=== PATIENT | female | born 1985 | race Caucasian/White ===

== ENCOUNTER 2016-03-08 14:26 | Emergency (ER) | payer OTHER ==
[~2016-03-08 14:26] MED LIST: /MOM400 PO; ACET500T PO; ACET50TA PO; ANUS2.5C2 EXT; BENA25TA4 PO; CIPR500T3 PO; DOCU10ELUD PO; GUAI1TAB PO; IBUP600T26 PO; IBUP800T23 PO; PRENTAB66 PO; VALACYCLOVIR; VALTREX PO; ZANTTAB PO
[2016-03-08] MEDS ORDERED: MORPHINE 4 MG/ML 1ML SYRINGE As Ordered ONE (16:38)
[2016-03-08] MEDS ORDERED: ONDANSETRON 4MG/2ML VIAL (J2405) As Ordered ONE (16:38)
[2016-03-08 17:16] LABS: BASO % 0.6 % (0.0-1.0); EOS % 0.5 % (0.0-3.0); LARGE UNSTAINED CELL # 0.1 K/mm3 (0.0-0.4); LARGE UNSTAINED CELL % 1.8 % (0.0-4.0); LYMPH # 2.3 K/mm3 (1.5-4.5); LYMPH % 37.7 % (24.0-44.0); MEAN CORPUSCULAR HEMOGLOBIN 31.2 pg (27.0-33.0); MEAN CORPUSCULAR HGB CONC 34.3 g/dl (32.0-36.5); MEAN CORPUSCULAR VOLUME 91.1 fl (80.0-96.0); MONO # 0.3 K/mm3 (0.0-0.8); NEUTROPHILS # 3.3 K/mm3 (1.8-7.7); NEUTROPHILS % 54.4 % (36.0-66.0); PLATELET COUNT, AUTOMATED 229 k/mm3 (150-450); RED CELL DISTRIBUTION WIDTH 12.4 % (11.5-14.5)
[2016-03-08 17:32] LABS: ALBUMIN 3.5 GM/DL (3.2-5.2); ALBUMIN/GLOBULIN RATIO 0.92 (1.00-1.93); ALKALINE PHOSPHATASE 75 U/L (45-117); ALT/SGPT 16 U/L (12-78); AMYLASE 33 U/L (25-115); ANION GAP 8 MEQ/L (8-16); AST/SGOT 8 U/L (15-37); BILIRUBIN,DIRECT < 0.1 MG/DL (0.0-0.2); BILIRUBIN,TOTAL 0.3 MG/DL (0.2-1.0); BLOOD UREA NITROGEN 17 MG/DL (7-18); CALCIUM LEVEL 9.1 MG/DL (8.5-10.1); CARBON DIOXIDE LEVEL 27 MEQ/L (21-32); CHLORIDE LEVEL 109 MEQ/L (98-107); CREATININE FOR GFR 0.79 MG/DL (0.55-1.02); GLOMERULAR FILTRATION RATE > 60.0 (>60); GLUCOSE, FASTING 84 MG/DL (70-105); POTASSIUM SERUM 3.8 MEQ/L (3.5-5.1); SODIUM LEVEL 144 MEQ/L (136-145); TOTAL PROTEIN 7.3 GM/DL (6.4-8.2)
--- NOTE | 2016-03-08 17:53 | REP ---
Clinical: Flank pain and hematuria. Comparison: 11/24/2014. Findings: Right kidney demonstrates approximately four punctate renal calculi up to 2 mm. Left kidney demonstrates approximately six renal calculi measuring up to 7 mm. The kidneys are otherwise normal in appearance without perinephric stranding and without obstructing ureteral calculi. Bladder is unremarkable. Liver, spleen, gallbladder, and bilateral adrenal glands are normal. The enteric system is without obstruction or acute inflammatory process. Pelvis demonstrates normal bladder and age-appropriate uterus/adnexa. No pelvic fluid or ascites. No adenopathy. No free air. Lung bases clear. Skeletal structures normal. Impression: Bilateral nonobstructing nephroliths up to 2 mm in the right kidney and 7 mm in the left kidney. No associated hydronephrosis or obstructing calculi. Signed by Odilon Bear MD 03/08/2016 05:45 P
[2016-03-08] MEDS ORDERED: CIPROFLOXACIN 500 MG TAB As Ordered ONE (18:35)
--- NOTE | 2016-03-08 19:25 | EDDOCDS ---
Nurse's Notes [facility] Name: Gemini Buchanan Age: 30 yrs Sex: Female : 1985 Arrival Date: 03/08/2016 Time: 14:26 Bed I3 / M3 Private MD: Manuel Whitley P. Diagnosis: Urinary tract infection, site not specified;Calculus of kidney-BILATERAL Presentation: 03/08 14:36 Presenting complaint: Patient states: mid to lower abd pain that radiates to left srm flank. pain started 2 nights ago. nausea and cramping. hx of kidney stones but this feel different. yesterday had blood on tissue when wiped. Risk factors: the patient reports no vaginal bleeding. Adult Sepsis Screening: The patient does not have new or worsening altered mentation. Patient's respiratory rate is less than 22. Systolic blood pressure is greater than 100. Patient has a qSOFA score of 0- Negative Sepsis Screen. Suicide/Homicide risk assessment- the patient denies having any suicidal and/or homicidal ideations and does not present with any other emotional, behavioral or mental health complaints. Status: The patient is a dependent. Transition of care: patient was not received from another setting of care. 14:36 Acuity: STACI Level 3 [facility] 14:36 Method Of Arrival: Walkin/Carried/Asstd [facility] Triage Assessment: 14:38 General: Appears in no apparent distress, Behavior is appropriate for age, cooperative. srm Pain: Pain currently is 8 out of 10 on a pain scale. HIV screening NA for this visit Offered previously. GI: Reports mid to lower abd pain. 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 control daily - PMHx: Kidney stones; - PSHx: Tonsillectomy; Lithotripsy; kidney stent; - Social history: Smoking status: Patient states was never smoker of tobacco. No barriers to communication noted, The patient speaks fluent Bhutanese, Speaks appropriately for age. - Family history: Not pertinent. - : The pt / caregiver states he / she is not on anticoagulants. Home medication list is obtained from the patient. - Exposure Risk Screening:: None identified. Screenin:08 Screening information is obtained from the patient. Fall risk: No risks identified. kc3 Assistance ADL's: requires no assistance with activities of daily living. Abuse/DV Screen: The patient / caregiver reports he/she is: not in a situation that causes fear, pain or injury. Nutritional screening: No deficits noted. home support is adequate. 19:23 Advance Directives: There is no active DNR order. [facility] Assessment: 17:05 General: Appears in no apparent distress, comfortable, Behavior is appropriate for age, kc3 cooperative. Neurological: Level of Consciousness is awake, alert, obeys commands, Oriented to person, place, time. Respiratory: Respiratory effort is even, unlabored, Respiratory pattern is regular, symmetrical. GI: Abdomen is flat, Bowel sounds present X 4 quads. Abd is soft Abd is tender to palpation in left lower quadrant. GI: Reports nausea. Derm: Skin is pink, warm & dry. 18:06 General: Appears in no apparent distress, comfortable, Behavior is appropriate for age, kc3 cooperative. Pain: Location: left lower quadrant Pain currently is 3 out of 10 on a pain scale. Neurological: Level of Consciousness is awake, alert, obeys commands, Oriented to person, place, time. Respiratory: Respiratory effort is even, unlabored. GI: Derm: Skin is normal. Vital Signs: 14:27 BP 143 / 79; Pulse 87; Resp 18; Temp 97.3(O); Pulse Ox 100% on R/A; Weight 61.69 kg ct3 (R); Height 5 ft. 0 in. (152.40 cm) (R); Pain 3/10; 17:27 BP 122 / 68; Pulse 79; Resp 18; Temp 97.3(O); Pulse Ox 100% on R/A; Pain 3/10; nb2 19:22 BP 138 / 97; Pulse 90; Resp 18; Temp 96.7(O); Pulse Ox 100% on R/A; Pain 3/10; mcp 14:27 Body Mass Index 26.56 (61.69 kg, 152.40 cm) ct3 Vitals: 14:27 Log In Time: March 08, 2016 at 14:25. ct3 ED Course: 14:27 Patient visited by Janeen Rhodes PCA. ct3 14:27 Patient moved to Waiting ct3 14:28 Patient moved to Pre RCE ct3 14:29 Manuel Whitley is Private Physician. ct3 14:38 Triage Initiated srm 14:46 Urine Culture Sent. srm 14:46 UA Sent. srm 14:50 Patient visited by Gwendolyn Llanes PCA. jb5 15:28 Patient moved to Triage 2 dy 15:29 Patient moved to Pre RCE dy 15:46 Patient moved to Triage 1 jf3 15:47 Patient visited by Gwendolyn Llanes PCA. jb5 16:04 [facility] ck[facility] 16:04 Sarai Diego MD is Attending Physician. ck7 16:04 Patient visited by Manuel Vega RPA-C. ck7 16:13 [facility] Payment Agreement was scanned into [employer] and attached to record. zo 16:18 Patient moved to I3 / M3 jb5 16:35 Patient visited by Manuel Vega RPA-C. ck7 17:03 Amylase Sent. kc3 17:03 Basic Metabolic Profile Sent. kc3 17:03 CBC with Diff Sent. kc3 17:04 Lipase Sent. kc3 17:04 Liver Profile Sent. kc3 17:04 Inserted saline lock: 20 gauge in left antecubital area and blood collected. The kc3 patient tolerated the procedure well. 17:08 Patient visited by Manuel Vega RPA-C. ck7 17:09 The patient / caregiver is instructed regarding the plan of care and ED course. kc3 17:28 Patient visited by Jackie Dozier. nb2 18:09 Patient visited by Pita Talamantes RN. kc3 18:12 CT ABD & PELVIS: No Contrast Returned. EDMS 18:40 Patient visited by Manuel Vega RPA-C. ck7 19:09 Jose Angel Jung is Referral Physician. ck7 19:22 Discontinued lock intact, bleeding controlled, pressure dressing applied, No mcp redness/swelling at site. No procedures done that require assistance. Administered Medications: 17:04 Drug: morphine 4 mg [morphine 4 mg/mL intravenous cartridge (1 mL)] Route: IVP; Site: kc3 left antecubital; 17:04 Drug: Ondansetron 4 mg [ondansetron HCl 2 mg/mL intravenous solution (2 mL)] Route: kc3 IVP; Site: left antecubital; 17:04 Drug: NS 0.9% 1000 ml [sodium chloride 0.9 % intravenous solution] Route: IV; Rate: kc3 bolus; Site: left antecubital; 18:38 Drug: Ciprofloxacin 500 mg [ciprofloxacin 500 mg tablet (1 tabs)] Route: PO; kc3 Point of Care Testing: Urine : 14:50 hCG Reading: Negative; Control Reading: Positive; jb5 Ranges: Order Results: Lab Order: UA; SPEC'M 03/08/16 14:44 Test: APPEARANCE, URINE; Value: CLEAR; Range: CLEAR; Status: F Test: COLOR, URINE; Value: YELLOW; Range: YELLOW; Status: F Test: PH,URINE; Value: 5.0; Range: 5.0-9.0; Units: UNITS; Status: F Test: SPECIFIC GRAVITY URINE AUTO; Value: 1.018; Range: 1.002-1.035; Status: F Test: PROTEIN, URINE AUTO; Value: 1+; Range: NEGATIVE; Abnormal: Above high normal; Units: mg/dL; Status: F Test: GLUCOSE, URINE (UA) AUTO; Value: NEGATIVE; Range: NEGATIVE; Units: mg/dL; Status: F Test: KETONE, URINE AUTO; Value: NEGATIVE; Range: NEGATIVE; Units: mg/dL; Status: F Test: UROBILINOGEN, URINE AUTO; Value: 0.2; Range: 0.0-2.0; Units: mg/dL; Status: F Test: BILIRUBIN, URINE AUTO; Value: NEGATIVE; Range: NEGATIVE; Status: F Test: NITRITE, URINE AUTO; Value: NEGATIVE; Range: NEGATIVE; Status: F Test: LEUKOCYTE ESTERASE, URINE AUTO; Value: TRACE; Range: NEGATIVE; Abnormal: Above high normal; Status: F Test: BLOOD, URINE BLOOD; Value: 2+; Range: NEGATIVE; Abnormal: Above high normal; Status: F Test: WBC, URINE AUTO; Value: 25; Range: 0-3; Abnormal: Above high normal; Units: /HPF; Status: F Test: RBC, URINE AUTO; Value: 69; Range: 0-3; Abnormal: Above high normal; Units: /HPF; Status: F Test: BACTERIA, URINE AUTO; Value: NEGATIVE; Range: NEGATIVE; Status: F Test: SQUAMOUS EPITHELIAL CELL UR AU; Value: 2; Range: 0-6; Units: /HPF; Status: F Test: MUCUS, URINE; Value: SMALL; Range: NEGATIVE; Status: F Test: HYALINE CAST, URINE AUTO; Value: 0; Range: 0-1; Units: /LPF; Status: F Lab Order: Amylase; SPEC'M 03/08/16 16:45 Test: AMYLASE; Value: 33; Range: 25-115; Units: U/L; Status: F Lab Order: Basic Metabolic Profile; SPEC'M 03/08/16 16:45 Test: GLUCOSE, FASTING; Value: 84; Range: 70-105; Units: MG/DL; Status: F Test: BLOOD UREA NITROGEN; Value: 17; Range: 7-18; Units: MG/DL; Status: F Test: CREATININE FOR GFR; Value: 0.79; Range: 0.55-1.02; Units: MG/DL; Status: F Test: GLOMERULAR FILTRATION RATE; Value: > 60.0; Range: >60; Status: F Test: SODIUM LEVEL; Value: 144; Range: 136-145; Units: MEQ/L; Status: F Test: POTASSIUM SERUM; Value: 3.8; Range: 3.5-5.1; Units: MEQ/L; Status: F Test: CHLORIDE LEVEL; Value: 109; Range: 98-107; Abnormal: Above high normal; Units: MEQ/L; Status: F Test: CARBON DIOXIDE LEVEL; Value: 27; Range: 21-32; Units: MEQ/L; Status: F Test: ANION GAP; Value: 8; Range: 8-16; Units: MEQ/L; Status: F Test: CALCIUM LEVEL; Value: 9.1; Range: 8.5-10.1; Units: MG/DL; Status: F Test Note: ; Units are mL/min/1.73 m2 Chronic Kidney Disease Staging per NKF: Stage I & II GFR >=60 Normal to Mildly Decreased Stage III GFR 30-59 Moderately Decreased Stage IV GFR 15-29 Severely Decreased Stage V GFR <15 Very Little GFR Left ESRD GFR <15 on CAR RENTAL SALES ASSISTANT Lab Order: CBC with Diff; SPEC'M 03/08/16 16:45 Test: WHITE BLOOD COUNT; Value: 6.0; Range: 4.0-10.0; Units: K/mm3; Status: F Test: RED BLOOD COUNT; Value: 4.28; Range: 4.00-5.40; Units: M/mm3; Status: F Test: HEMOGLOBIN; Value: 13.4; Range: 12.0-16.0; Units: g/dl; Status: F Test: HEMATOCRIT; Value: 39.0; Range: 36.0-47.0; Units: %; Status: F Test: MEAN CORPUSCULAR VOLUME; Value: 91.1; Range: 80.0-96.0; Units: fl; Status: F Test: MEAN CORPUSCULAR HEMOGLOBIN; Value: 31.2; Range: 27.0-33.0; Units: pg; Status: F Test: MEAN CORPUSCULAR HGB CONC; Value: 34.3; Range: 32.0-36.5; Units: g/dl; Status: F Test: RED CELL DISTRIBUTION WIDTH; Value: 12.4; Range: 11.5-14.5; Units: %; Status: F Test: PLATELET COUNT, AUTOMATED; Value: 229; Range: 150-450; Units: k/mm3; Status: F Test: NEUTROPHILS %; Value: 54.4; Range: 36.0-66.0; Units: %; Status: F Test: LYMPH %; Value: 37.7; Range: 24.0-44.0; Units: %; Status: F Test: MONO %; Value: 5.0; Range: 0.0-5.0; Units: %; Status: F Test: EOS %; Value: 0.5; Range: 0.0-3.0; Units: %; Status: F Test: BASO %; Value: 0.6; Range: 0.0-1.0; Units: %; Status: F Test: LARGE UNSTAINED CELL %; Value: 1.8; Range: 0.0-4.0; Units: %; Status: F Test: NEUTROPHILS #; Value: 3.3; Range: 1.8-7.7; Units: K/mm3; Status: F Test: LYMPH #; Value: 2.3; Range: 1.5-4.5; Units: K/mm3; Status: F Test: MONO #; Value: 0.3; Range: 0.0-0.8; Units: K/mm3; Status: F Test: EOS #; Value: 0.0; Range: 0.0-0.50; Units: K/mm3; Status: F Test: BASO #; Value: 0.0; Range: 0.0-0.2; Units: K/mm3; Status: F Test: LARGE UNSTAINED CELL #; Value: 0.1; Range: 0.0-0.4; Units: K/mm3; Status: F Lab Order: Lipase; SPEC'M 03/08/16 16:45 Test: LIPASE; Value: 118; Range: 73-393; Units: U/L; Status: F Lab Order: Liver Profile; SPEC'M 03/08/16 16:45 Test: AST/SGOT; Value: 8; Range: 15-37; Abnormal: Below low normal; Units: U/L; Status: F Test: ALT/SGPT; Value: 16; Range: 12-78; Units: U/L; Status: F Test: ALKALINE PHOSPHATASE; Value: 75; Range: 45-117; Units: U/L; Status: F Test: BILIRUBIN,TOTAL; Value: 0.3; Range: 0.2-1.0; Units: MG/DL; Status: F Test: BILIRUBIN,DIRECT; Value: < 0.1; Range: 0.0-0.2; Units: MG/DL; Status: F Test: TOTAL PROTEIN; Value: 7.3; Range: 6.4-8.2; Units: GM/DL; Status: F Test: ALBUMIN; Value: 3.5; Range: 3.2-5.2; Units: GM/DL; Status: F Test: ALBUMIN/GLOBULIN RATIO; Value: 0.92; Range: 1.00-1.93; Abnormal: Below low normal; Status: F Radiology Order: CT ABD & PELVIS: No Contrast Test: CT ABD & PELVIS: No Contrast REASON FOR EXAMINATION: FLANK PAIN, HEMATURIA, R/O STONE; Clinical: Flank pain and hematuria.; ; Comparison: 11/24/2014.; ; Findings:; Right kidney demonstrates approximately four punctate renal calculi up to 2 mm.; Left kidney demonstrates approximately six renal calculi measuring up to 7 mm.; The kidneys are otherwise normal in appearance without perinephric stranding and; without obstructing ureteral calculi. Bladder is unremarkable.; ; Liver, spleen, gallbladder, and bilateral adrenal glands are normal. The enteric; system is without obstruction or acute inflammatory process. Pelvis demonstrates; normal bladder and age-appropriate uterus/adnexa. No pelvic fluid or ascites.; No adenopathy. No free air. Lung bases clear. Skeletal structures normal.; ; Impression:; Bilateral nonobstructing nephroliths up to 2 mm in the right kidney and 7 mm in; the left kidney. No associated hydronephrosis or obstructing calculi.; ; ; Signed by; Odilon Bear MD 03/08/2016 05:45 P; Outcome: 18:07 CT Study completed. kc3 19:09 Discharge ordered by Provider. ck7 19:23 Discharge Assessment: patient administered narcotics - yes. Pt provided with safe mcp discharge. The following High Risk Discharge criteria are identified: None. Discharged to home ambulatory, with significant other. Condition: stable. Discharge instructions given to patient, Instructed on discharge instructions, follow up and referral plans. medication usage, no driving heavy equipment, no drinking with medication, Demonstrated understanding of instructions, medications, Pt was receptive of discharge instructions/ teaching. Prescriptions given X 2. Property sent home with patient. 19:24 Patient left the ED. [facility] Signatures: Dispatcher [employer] EDMS Selene Dela Cruz, RN Cindy Kumar RN RN Mario Vick, RN Gwendolyn Mcginnis, WHIP SAWYER WHIP SAWYER jb5 Denis Harding Consuelo, WHIP SAWYER WHIP SAWYER ct3 Manuel Vega, RPA-C RPA-Cck7 Pita Talamantes,FIDEL RN kc3 Mohamud Ying,FIDEL cruz3 Jackie Dozier MTDD
--- NOTE | 2016-03-08 19:25 | EDDOCDS ---
Physician Documentation [facility] Name: Gemini Buchanan Age: 30 yrs Sex: Female : 1985 Arrival Date: 03/08/2016 Time: 14:26 Bed I3 / M3 Private MD: Manuel Whitley P. Disposition: 03/08/16 19:09 Discharged to Home/Self Care. Impression: Urinary tract infection, site not specified, Calculus of kidney - BILATERAL. - Condition is Stable. - Discharge Instructions: Kidney Stones, Urinary Tract Infection. - Prescriptions for Cipro 500 mg Oral Tablet - take 1 tablet by ORAL route every 12 hours; 20 tablet. [place] 5- 325 mg Oral Tablet - take 1 tablet by ORAL route every 6 hours As needed MDD: 4 tabs; 10 tablet. - Medication Reconciliation, Local Pharmacy Hours form. - Follow up: Jose Angel Jung; When: 2 - 3 days; Reason: Recheck today's complaints, Continuance of care. - Problem is new. - Symptoms have improved. - Notes: USE MEDICATION INSTRUTCED, FOLLOW UP WITH YOUR DOCTOR, RETURN TO THE ER IF THE SYMPTOMS WORSEN OR BECOME CONCERNING Historical: - Allergies: no known allergies; - Home Meds: 1. control daily - PMHx: Kidney stones; - PSHx: Tonsillectomy; Lithotripsy; kidney stent; - Social history: Smoking status: Patient states was never smoker of tobacco. No barriers to communication noted, The patient speaks fluent Egyptian, Speaks appropriately for age. - Family history: Not pertinent. - : The pt / caregiver states he / she is not on anticoagulants. Home medication list is obtained from the patient. - Exposure Risk Screening:: None identified. 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 0 in. (152.40 cm) (R); Pain 3/10; 17:27 BP 122 / 68; Pulse 79; Resp 18; Temp 97.3(O); Pulse Ox 100% on R/A; Pain 3/10; nb2 19:22 BP 138 / 97; Pulse 90; Resp 18; Temp 96.7(O); Pulse Ox 100% on R/A; Pain 3/10; mcp 14:27 Body Mass Index 26.56 (61.69 kg, 152.40 cm) ct3 MDM: 14:40 UCG by Nursing ordered. srm 14:41 UA Ordered. EDMS 14:41 Urine Culture Ordered. EDMS 15:35 UA Reviewed. sd1 16:12 Financial registration complete. zo 16:13 [facility] [place] Payment Agreement was scanned into [employer] and attached to record. zo 16:17 Undress patient appropriately for examination ordered. ck7 16:17 IV Saline Lock ordered. ck7 16:17 morphine 4 mg IVP once ordered. ck7 16:17 Ondansetron 4 mg IVP once ordered. ck7 16:17 NS 0.9% 1000 ml IV at bolus once ordered. ck7 16:18 Amylase Ordered. EDMS 16:18 Basic Metabolic Profile Ordered. EDMS 16:18 CBC with Diff Ordered. EDMS 16:18 Lipase Ordered. EDMS 16:18 Liver Profile Ordered. EDMS 16:18 NOTHING BY MOUTH+DIET ordered. EDMS 17:15 CT ABD & PELVIS: No Contrast Ordered. EDMS 18:31 Basic Metabolic Profile Reviewed. ck7 18:31 Liver Profile Reviewed. ck7 18:31 Amylase Reviewed. ck7 18:31 CBC with Diff Reviewed. ck7 18:31 Lipase Reviewed. ck7 18:31 CT ABD & PELVIS: No Contrast Reviewed. ck7 18:33 Ciprofloxacin 500 mg PO once ordered. ck7 Point of Care Testing: Urine : 14:50 hCG Reading: Negative; Control Reading: Positive; jb5 Ranges: Administered Medications: 17:04 Drug: morphine 4 mg [morphine 4 mg/mL intravenous cartridge (1 mL)] Route: IVP; Site: kc3 left antecubital; 17:04 Drug: Ondansetron 4 mg [ondansetron HCl 2 mg/mL intravenous solution (2 mL)] Route: kc3 IVP; Site: left antecubital; 17:04 Drug: NS 0.9% 1000 ml [sodium chloride 0.9 % intravenous solution] Route: IV; Rate: kc3 bolus; Site: left antecubital; 18:38 Drug: Ciprofloxacin 500 mg [ciprofloxacin 500 mg tablet (1 tabs)] Route: PO; kc3 Signatures: Dispatcher [employer] Sarai Bellamy MD MD sd1 Selene Dela Cruz RN Cindy Kumar RN RN mcp Olin, Zoeann zo Kwaczala, Christopher, RPA-C RPA-Cck7 Pita Talamantes RN RN kc3 The chart was reviewed and I authenticate all verbal orders and agree with the evaluation and treatment provided.Attachments: 16:13 [facility] Payment Agreement zo MTDD
--- NOTE | 2016-03-10 20:24 | EDDOCDS ---
Nurse's Notes [facility] Name: Gemini Buchanan Age: 30 yrs Sex: Female : 1985 Arrival Date: 03/08/2016 Time: 14:26 Bed I3 / M3 Private MD: Manuel Whitley P. Diagnosis: Urinary tract infection, site not specified;Calculus of kidney-BILATERAL Presentation: 03/08 14:36 Presenting complaint: Patient states: mid to lower abd pain that radiates to left srm flank. pain started 2 nights ago. nausea and cramping. hx of kidney stones but this feel different. yesterday had blood on tissue when wiped. Risk factors: the patient reports no vaginal bleeding. Adult Sepsis Screening: The patient does not have new or worsening altered mentation. Patient's respiratory rate is less than 22. Systolic blood pressure is greater than 100. Patient has a qSOFA score of 0- Negative Sepsis Screen. Suicide/Homicide risk assessment- the patient denies having any suicidal and/or homicidal ideations and does not present with any other emotional, behavioral or mental health complaints. Status: The patient is a dependent. Transition of care: patient was not received from another setting of care. 14:36 Acuity: [facility] 14:36 Method Of Arrival: [facility] Triage Assessment: 14:38 General: Appears in no apparent distress, Behavior is appropriate for age, cooperative. srm Pain: Pain currently is 8 out of 10 on a pain scale. HIV screening NA for this visit Offered previously. GI: Reports mid to lower abd pain. 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 control daily - PMHx: Kidney stones; - PSHx: Tonsillectomy; Lithotripsy; kidney stent; - Social history: Smoking status: Patient states was never smoker of tobacco. No barriers to communication noted, The patient speaks fluent Solomon Islander, Speaks appropriately for age. - Family history: Not pertinent. - : The pt / caregiver states he / she is not on anticoagulants. Home medication list is obtained from the patient. - Exposure Risk Screening:: None identified. Screenin:08 Screening information is obtained from the patient. Fall risk: No risks identified. kc3 Assistance ADL's: requires no assistance with activities of daily living. Abuse/DV Screen: The patient / caregiver reports he/she is: not in a situation that causes fear, pain or injury. Nutritional screening: No deficits noted. home support is adequate. 19:23 Advance Directives: There is no active DNR order. [facility] [place] Assessment: 17:05 General: Appears in no apparent distress, comfortable, Behavior is appropriate for age, kc3 cooperative. Neurological: Level of Consciousness is awake, alert, obeys commands, Oriented to person, place, time. Respiratory: Respiratory effort is even, unlabored, Respiratory pattern is regular, symmetrical. GI: Abdomen is flat, Bowel sounds present X 4 quads. Abd is soft Abd is tender to palpation in left lower quadrant. GI: Reports nausea. Derm: Skin is pink, warm & dry. 18:06 General: Appears in no apparent distress, comfortable, Behavior is appropriate for age, kc3 cooperative. Pain: Location: left lower quadrant Pain currently is 3 out of 10 on a pain scale. Neurological: Level of Consciousness is awake, alert, obeys commands, Oriented to person, place, time. Respiratory: Respiratory effort is even, unlabored. GI: Derm: Skin is normal. Vital Signs: 14:27 BP 143 / 79; Pulse 87; Resp 18; Temp 97.3(O); Pulse Ox 100% on R/A; Weight 61.69 kg ct3 (R); Height 5 ft. 0 in. (152.40 cm) (R); Pain 3/10; 17:27 BP 122 / 68; Pulse 79; Resp 18; Temp 97.3(O); Pulse Ox 100% on R/A; Pain 3/10; nb2 19:22 BP 138 / 97; Pulse 90; Resp 18; Temp 96.7(O); Pulse Ox 100% on R/A; Pain 3/10; mcp 14:27 Body Mass Index 26.56 (61.69 kg, 152.40 cm) ct3 Vitals: 14:27 Log In Time: March 08, 2016 at 14:25. ct3 ED Course: 14:27 Patient visited by Janeen Rhodes PCA. ct3 14:27 Patient moved to Waiting ct3 14:28 Patient moved to Pre RCE ct3 14:29 Manuel Whitley is Private Physician. ct3 14:38 Triage Initiated srm 14:46 Urine Culture Sent. srm 14:46 UA Sent. srm 14:50 Patient visited by Gwendolyn Llanes PCA. jb5 15:28 Patient moved to Triage 2 dy 15:29 Patient moved to Pre RCE dy 15:46 Patient moved to Triage 1 jf3 15:47 Patient visited by Gwendolyn Llanes PCA. jb5 16:04 [facility] ck[facility] 16:04 Sarai Diego MD is Attending Physician. ck7 16:04 Patient visited by Manuel Vega RPA-C. ck7 16:13 [facility] Payment Agreement was scanned into [employer] and attached to record. zo 16:18 Patient moved to I3 / M3 jb5 16:35 Patient visited by Manuel Vega RPA-C. ck7 17:03 Amylase Sent. kc3 17:03 Basic Metabolic Profile Sent. kc3 17:03 CBC with Diff Sent. kc3 17:04 Lipase Sent. kc3 17:04 Liver Profile Sent. kc3 17:04 Inserted saline lock: 20 gauge in left antecubital area and blood collected. The kc3 patient tolerated the procedure well. 17:08 Patient visited by Manuel Vega RPA-C. ck7 17:09 The patient / caregiver is instructed regarding the plan of care and ED course. kc3 17:28 Patient visited by Jackie Dozier. nb2 18:09 Patient visited by Pita Talamantes RN. kc3 18:12 CT ABD & PELVIS: No Contrast Returned. EDMS 18:40 Patient visited by Manuel Vega RPA-C. ck7 19:09 Jose Angel Jung is Referral Physician. ck7 19:22 Discontinued lock intact, bleeding controlled, pressure dressing applied, No mcp redness/swelling at site. No procedures done that require assistance. 03/09 08:59 T-Sheet-- Draft Copy was scanned into [employer] and attached to record. gb Administered Medications: 03/08 17:04 Drug: morphine 4 mg [morphine 4 mg/mL intravenous cartridge (1 mL)] Route: IVP; Site: kc3 left antecubital; 17:04 Drug: Ondansetron 4 mg [ondansetron HCl 2 mg/mL intravenous solution (2 mL)] Route: kc3 IVP; Site: left antecubital; 17:04 Drug: NS 0.9% 1000 ml [sodium chloride 0.9 % intravenous solution] Route: IV; Rate: kc3 bolus; Site: left antecubital; 18:38 Drug: Ciprofloxacin 500 mg [ciprofloxacin 500 mg tablet (1 tabs)] Route: PO; kc3 Point of Care Testing: Urine : 14:50 hCG Reading: Negative; Control Reading: Positive; jb5 Ranges: Order Results: Lab Order: UA; SPEC'M 03/08/16 14:44 Test: APPEARANCE, URINE; Value: CLEAR; Range: CLEAR; Status: F Test: COLOR, URINE; Value: YELLOW; Range: YELLOW; Status: F Test: PH,URINE; Value: 5.0; Range: 5.0-9.0; Units: UNITS; Status: F Test: SPECIFIC GRAVITY URINE AUTO; Value: 1.018; Range: 1.002-1.035; Status: F Test: PROTEIN, URINE AUTO; Value: 1+; Range: NEGATIVE; Abnormal: Above high normal; Units: mg/dL; Status: F Test: GLUCOSE, URINE (UA) AUTO; Value: NEGATIVE; Range: NEGATIVE; Units: mg/dL; Status: F Test: KETONE, URINE AUTO; Value: NEGATIVE; Range: NEGATIVE; Units: mg/dL; Status: F Test: UROBILINOGEN, URINE AUTO; Value: 0.2; Range: 0.0-2.0; Units: mg/dL; Status: F Test: BILIRUBIN, URINE AUTO; Value: NEGATIVE; Range: NEGATIVE; Status: F Test: NITRITE, URINE AUTO; Value: NEGATIVE; Range: NEGATIVE; Status: F Test: LEUKOCYTE ESTERASE, URINE AUTO; Value: TRACE; Range: NEGATIVE; Abnormal: Above high normal; Status: F Test: BLOOD, URINE BLOOD; Value: 2+; Range: NEGATIVE; Abnormal: Above high normal; Status: F Test: WBC, URINE AUTO; Value: 25; Range: 0-3; Abnormal: Above high normal; Units: /HPF; Status: F Test: RBC, URINE AUTO; Value: 69; Range: 0-3; Abnormal: Above high normal; Units: /HPF; Status: F Test: BACTERIA, URINE AUTO; Value: NEGATIVE; Range: NEGATIVE; Status: F Test: SQUAMOUS EPITHELIAL CELL UR AU; Value: 2; Range: 0-6; Units: /HPF; Status: F Test: MUCUS, URINE; Value: SMALL; Range: NEGATIVE; Status: F Test: HYALINE CAST, URINE AUTO; Value: 0; Range: 0-1; Units: /LPF; Status: F Lab Order: Urine Culture; SPEC' 03/08/16 14:44 Test: URINE CULTURE; Value: URINE CULTURE RESULT NO GROWTH; Status: F Lab Order: Amylase; SPEC'M 03/08/16 16:45 Test: AMYLASE; Value: 33; Range: 25-115; Units: U/L; Status: F Lab Order: Basic Metabolic Profile; SPEC' 03/08/16 16:45 Test: GLUCOSE, FASTING; Value: 84; Range: 70-105; Units: MG/DL; Status: F Test: BLOOD UREA NITROGEN; Value: 17; Range: 7-18; Units: MG/DL; Status: F Test: CREATININE FOR GFR; Value: 0.79; Range: 0.55-1.02; Units: MG/DL; Status: F Test: GLOMERULAR FILTRATION RATE; Value: > 60.0; Range: >60; Status: F Test: SODIUM LEVEL; Value: 144; Range: 136-145; Units: MEQ/L; Status: F Test: POTASSIUM SERUM; Value: 3.8; Range: 3.5-5.1; Units: MEQ/L; Status: F Test: CHLORIDE LEVEL; Value: 109; Range: 98-107; Abnormal: Above high normal; Units: MEQ/L; Status: F Test: CARBON DIOXIDE LEVEL; Value: 27; Range: 21-32; Units: MEQ/L; Status: F Test: ANION GAP; Value: 8; Range: 8-16; Units: MEQ/L; Status: F Test: CALCIUM LEVEL; Value: 9.1; Range: 8.5-10.1; Units: MG/DL; Status: F Test Note: ; Units are mL/min/1.73 m2 Chronic Kidney Disease Staging per NKF: Stage I & II GFR >=60 Normal to Mildly Decreased Stage III GFR 30-59 Moderately Decreased Stage IV GFR 15-29 Severely Decreased Stage V GFR <15 Very Little GFR Left ESRD GFR <15 on [employer] Lab Order: CBC with Diff; SPEC'M 03/08/16 16:45 Test: WHITE BLOOD COUNT; Value: 6.0; Range: 4.0-10.0; Units: K/mm3; Status: F Test: RED BLOOD COUNT; Value: 4.28; Range: 4.00-5.40; Units: M/mm3; Status: F Test: HEMOGLOBIN; Value: 13.4; Range: 12.0-16.0; Units: g/dl; Status: F Test: HEMATOCRIT; Value: 39.0; Range: 36.0-47.0; Units: %; Status: F Test: MEAN CORPUSCULAR VOLUME; Value: 91.1; Range: 80.0-96.0; Units: fl; Status: F Test: MEAN CORPUSCULAR HEMOGLOBIN; Value: 31.2; Range: 27.0-33.0; Units: pg; Status: F Test: MEAN CORPUSCULAR HGB CONC; Value: 34.3; Range: 32.0-36.5; Units: g/dl; Status: F Test: RED CELL DISTRIBUTION WIDTH; Value: 12.4; Range: 11.5-14.5; Units: %; Status: F Test: PLATELET COUNT, AUTOMATED; Value: 229; Range: 150-450; Units: k/mm3; Status: F Test: NEUTROPHILS %; Value: 54.4; Range: 36.0-66.0; Units: %; Status: F Test: LYMPH %; Value: 37.7; Range: 24.0-44.0; Units: %; Status: F Test: MONO %; Value: 5.0; Range: 0.0-5.0; Units: %; Status: F Test: EOS %; Value: 0.5; Range: 0.0-3.0; Units: %; Status: F Test: BASO %; Value: 0.6; Range: 0.0-1.0; Units: %; Status: F Test: LARGE UNSTAINED CELL %; Value: 1.8; Range: 0.0-4.0; Units: %; Status: F Test: NEUTROPHILS #; Value: 3.3; Range: 1.8-7.7; Units: K/mm3; Status: F Test: LYMPH #; Value: 2.3; Range: 1.5-4.5; Units: K/mm3; Status: F Test: MONO #; Value: 0.3; Range: 0.0-0.8; Units: K/mm3; Status: F Test: EOS #; Value: 0.0; Range: 0.0-0.50; Units: K/mm3; Status: F Test: BASO #; Value: 0.0; Range: 0.0-0.2; Units: K/mm3; Status: F Test: LARGE UNSTAINED CELL #; Value: 0.1; Range: 0.0-0.4; Units: K/mm3; Status: F Lab Order: Lipase; SPEC'M 03/08/16 16:45 Test: LIPASE; Value: 118; Range: 73-393; Units: U/L; Status: F Lab Order: Liver Profile; SPEC'M 03/08/16 16:45 Test: AST/SGOT; Value: 8; Range: 15-37; Abnormal: Below low normal; Units: U/L; Status: F Test: ALT/SGPT; Value: 16; Range: 12-78; Units: U/L; Status: F Test: ALKALINE PHOSPHATASE; Value: 75; Range: 45-117; Units: U/L; Status: F Test: BILIRUBIN,TOTAL; Value: 0.3; Range: 0.2-1.0; Units: MG/DL; Status: F Test: BILIRUBIN,DIRECT; Value: < 0.1; Range: 0.0-0.2; Units: MG/DL; Status: F Test: TOTAL PROTEIN; Value: 7.3; Range: 6.4-8.2; Units: GM/DL; Status: F Test: ALBUMIN; Value: 3.5; Range: 3.2-5.2; Units: GM/DL; Status: F Test: ALBUMIN/GLOBULIN RATIO; Value: 0.92; Range: 1.00-1.93; Abnormal: Below low normal; Status: F Radiology Order: CT ABD & PELVIS: No Contrast Test: CT ABD & PELVIS: No Contrast REASON FOR EXAMINATION: FLANK PAIN, HEMATURIA, R/O STONE; Clinical: Flank pain and hematuria.; ; Comparison: 11/24/2014.; ; Findings:; Right kidney demonstrates approximately four punctate renal calculi up to 2 mm.; Left kidney demonstrates approximately six renal calculi measuring up to 7 mm.; The kidneys are otherwise normal in appearance without perinephric stranding and; without obstructing ureteral calculi. Bladder is unremarkable.; ; Liver, spleen, gallbladder, and bilateral adrenal glands are normal. The enteric; system is without obstruction or acute inflammatory process. Pelvis demonstrates; normal bladder and age-appropriate uterus/adnexa. No pelvic fluid or ascites.; No adenopathy. No free air. Lung bases clear. Skeletal structures normal.; ; Impression:; Bilateral nonobstructing nephroliths up to 2 mm in the right kidney and 7 mm in; the left kidney. No associated hydronephrosis or obstructing calculi.; ; ; Signed by; Odilon Bear MD 03/08/2016 05:45 P; Outcome: 18:07 CT Study completed. kc3 19:09 Discharge ordered by Provider. ck7 19:23 Discharge Assessment: patient administered narcotics - yes. Pt provided with safe [facility] [place] discharge. The following High Risk Discharge criteria are identified: None. Discharged to home ambulatory, with significant other. Condition: stable. Discharge instructions given to patient, Instructed on discharge instructions, follow up and referral plans. medication usage, no driving heavy equipment, no drinking with medication, Demonstrated understanding of instructions, medications, Pt was receptive of discharge instructions/ teaching. Prescriptions given X 2. Property sent home with patient. 19:24 Patient left the ED. [facility] [place] Signatures: Dispatcher [employer] EDMS Selene Dela Cruz RN RN srm Peters, Mary, RN RN [facility] [place] Cassy Millan, Reg Reg Mario Stewart RN Gwendolyn Mcginnis, [employer] ARTISTIC DIRECTOR [employer] ARTISTIC DIRECTOR jb5 Denis Harding Consuelo, [employer] ARTISTIC DIRECTOR [employer] ARTISTIC DIRECTOR ct3 Manuel Vega, RPA-C RPA-Cck7 Pita Talamantes,FIDEL RN [email or web address] Mohamud Ying,Jackie Martel RN Chart Complete MTDD
--- NOTE | 2016-03-10 20:24 | EDDOCDS ---
Physician Documentation [facility] Name: Gemini Buchanan Age: 30 yrs Sex: Female : 1985 Arrival Date: 03/08/2016 Time: 14:26 Bed I3 / M3 Private MD: Manuel Whitley P. Disposition: 03/08/16 19:09 Discharged to Home/Self Care. Impression: Urinary tract infection, site not specified, Calculus of kidney - BILATERAL. - Condition is Stable. - Discharge Instructions: Kidney Stones, Urinary Tract Infection. - Prescriptions for Cipro 500 mg Oral Tablet - take 1 tablet by ORAL route every 12 hours; 20 tablet. [place] 5- 325 mg Oral Tablet - take 1 tablet by ORAL route every 6 hours As needed MDD: 4 tabs; 10 tablet. - Medication Reconciliation, Local Pharmacy Hours form. - Follow up: Jose Angel Jung; When: 2 - 3 days; Reason: Recheck today's complaints, Continuance of care. - Problem is new. - Symptoms have improved. - Notes: USE MEDICATION INSTRUTCED, FOLLOW UP WITH YOUR DOCTOR, RETURN TO THE ER IF THE SYMPTOMS WORSEN OR BECOME CONCERNING Historical: - Allergies: no known allergies; - Home Meds: 1. control daily - PMHx: Kidney stones; - PSHx: Tonsillectomy; Lithotripsy; kidney stent; - Social history: Smoking status: Patient states was never smoker of tobacco. No barriers to communication noted, The patient speaks fluent Afghan, Speaks appropriately for age. - Family history: Not pertinent. - : The pt / caregiver states he / she is not on anticoagulants. Home medication list is obtained from the patient. - Exposure Risk Screening:: None identified. 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 0 in. (152.40 cm) (R); Pain 3/10; 17:27 BP 122 / 68; Pulse 79; Resp 18; Temp 97.3(O); Pulse Ox 100% on R/A; Pain 3/10; nb2 19:22 BP 138 / 97; Pulse 90; Resp 18; Temp 96.7(O); Pulse Ox 100% on R/A; Pain 3/10; mcp 14:27 Body Mass Index 26.56 (61.69 kg, 152.40 cm) ct3 MDM: 14:40 UCG by Nursing ordered. srm 14:41 UA Ordered. EDMS 14:41 Urine Culture Ordered. EDMS 15:35 UA Reviewed. sd1 16:12 Financial registration complete. zo 16:13 [facility] Payment Agreement was scanned into [employer] and attached to record. zo 16:17 Undress patient appropriately for examination ordered. ck7 16:17 IV Saline Lock ordered. ck7 16:17 morphine 4 mg IVP once ordered. ck7 16:17 Ondansetron 4 mg IVP once ordered. ck7 16:17 NS 0.9% 1000 ml IV at bolus once ordered. ck7 16:18 Amylase Ordered. EDMS 16:18 Basic Metabolic Profile Ordered. EDMS 16:18 CBC with Diff Ordered. EDMS 16:18 Lipase Ordered. EDMS 16:18 Liver Profile Ordered. EDMS 16:18 NOTHING BY MOUTH+DIET ordered. EDMS 17:15 CT ABD & PELVIS: No Contrast Ordered. EDMS 18:31 Basic Metabolic Profile Reviewed. ck7 18:31 Liver Profile Reviewed. ck7 18:31 Amylase Reviewed. ck7 18:31 CBC with Diff Reviewed. ck7 18:31 Lipase Reviewed. ck7 18:31 CT ABD & PELVIS: No Contrast Reviewed. ck7 18:33 Ciprofloxacin 500 mg PO once ordered. ck7 03/09 08:59 T-Sheet-- Draft Copy was scanned into [employer] and attached to record. Point of Care Testing: Urine : 03/08 14:50 hCG Reading: Negative; Control Reading: Positive; jb5 Ranges: Administered Medications: 17:04 Drug: morphine 4 mg [morphine 4 mg/mL intravenous cartridge (1 mL)] Route: IVP; Site: kc3 left antecubital; 17:04 Drug: Ondansetron 4 mg [ondansetron HCl 2 mg/mL intravenous solution (2 mL)] Route: kc3 IVP; Site: left antecubital; 17:04 Drug: NS 0.9% 1000 ml [sodium chloride 0.9 % intravenous solution] Route: IV; Rate: kc3 bolus; Site: left antecubital; 18:38 Drug: Ciprofloxacin 500 mg [ciprofloxacin 500 mg tablet (1 tabs)] Route: PO; kc3 Signatures: Dispatcher [employer] Sarai Bellamy MD MD sd1 Selene Dela Cruz, RN RN Cindy Grimes RN RN Cassy Alvarado, Reg Reg gb Denis Harding Christopher, RPA-C RPA-Cck7 Pita Talamantes RN RN kc3 The chart was reviewed and I authenticate all verbal orders and agree with the evaluation and treatment provided.Attachments: 16:13 [facility] Payment Agreement zo 03/09 08:59 T-Sheet-- Draft Copy gb Chart Complete MTDD
--- NOTE | 2016-03-10 20:24 | EDDOCDS ---
Physician Documentation [facility] Name: Gemini Buchanan Age: 30 yrs Sex: Female : 1985 Arrival Date: 03/08/2016 Time: 14:26 Bed I3 / M3 Private MD: Manuel Whitley P. Disposition: 03/08/16 19:09 Discharged to Home/Self Care. Impression: Urinary tract infection, site not specified, Calculus of kidney - BILATERAL. - Condition is Stable. - Discharge Instructions: Kidney Stones, Urinary Tract Infection. - Prescriptions for Cipro 500 mg Oral Tablet - take 1 tablet by ORAL route every 12 hours; 20 tablet. [place] 5- 325 mg Oral Tablet - take 1 tablet by ORAL route every 6 hours As needed MDD: 4 tabs; 10 tablet. - Medication Reconciliation, Local Pharmacy Hours form. - Follow up: Jose Angel Jung; When: 2 - 3 days; Reason: Recheck today's complaints, Continuance of care. - Problem is new. - Symptoms have improved. - Notes: USE MEDICATION INSTRUTCED, FOLLOW UP WITH YOUR DOCTOR, RETURN TO THE ER IF THE SYMPTOMS WORSEN OR BECOME CONCERNING Historical: - Allergies: no known allergies; - Home Meds: 1. control daily - PMHx: Kidney stones; - PSHx: Tonsillectomy; Lithotripsy; kidney stent; - Social history: Smoking status: Patient states was never smoker of tobacco. No barriers to communication noted, The patient speaks fluent Swazi, Speaks appropriately for age. - Family history: Not pertinent. - : The pt / caregiver states he / she is not on anticoagulants. Home medication list is obtained from the patient. - Exposure Risk Screening:: None identified. 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 0 in. (152.40 cm) (R); Pain 3/10; 17:27 BP 122 / 68; Pulse 79; Resp 18; Temp 97.3(O); Pulse Ox 100% on R/A; Pain 3/10; nb2 19:22 BP 138 / 97; Pulse 90; Resp 18; Temp 96.7(O); Pulse Ox 100% on R/A; Pain 3/10; mcp 14:27 Body Mass Index 26.56 (61.69 kg, 152.40 cm) ct3 MDM: 14:40 UCG by Nursing ordered. srm 14:41 UA Ordered. EDMS 14:41 Urine Culture Ordered. EDMS 15:35 UA Reviewed. sd1 16:12 Financial registration complete. zo 16:13 [facility] [place] Agreement was scanned into [employer] and attached to record. zo 16:17 Undress patient appropriately for examination ordered. ck7 16:17 IV Saline Lock ordered. ck7 16:17 morphine 4 mg IVP once ordered. ck7 16:17 Ondansetron 4 mg IVP once ordered. ck7 16:17 NS 0.9% 1000 ml IV at bolus once ordered. ck7 16:18 Amylase Ordered. EDMS 16:18 Basic Metabolic Profile Ordered. EDMS 16:18 CBC with Diff Ordered. EDMS 16:18 Lipase Ordered. EDMS 16:18 Liver Profile Ordered. EDMS 16:18 NOTHING BY MOUTH+DIET ordered. EDMS 17:15 CT ABD & PELVIS: No Contrast Ordered. EDMS 18:31 Basic Metabolic Profile Reviewed. ck7 18:31 Liver Profile Reviewed. ck7 18:31 Amylase Reviewed. ck7 18:31 CBC with Diff Reviewed. ck7 18:31 Lipase Reviewed. ck7 18:31 CT ABD & PELVIS: No Contrast Reviewed. ck7 18:33 Ciprofloxacin 500 mg PO once ordered. ck7 03/09 08:59 T-Sheet-- Draft Copy was scanned into [employer] and attached to record. Point of Care Testing: Urine : 03/08 14:50 hCG Reading: Negative; Control Reading: Positive; jb5 Ranges: Administered Medications: 17:04 Drug: morphine 4 mg [morphine 4 mg/mL intravenous cartridge (1 mL)] Route: IVP; Site: kc3 left antecubital; 17:04 Drug: Ondansetron 4 mg [ondansetron HCl 2 mg/mL intravenous solution (2 mL)] Route: kc3 IVP; Site: left antecubital; 17:04 Drug: NS 0.9% 1000 ml [sodium chloride 0.9 % intravenous solution] Route: IV; Rate: kc3 bolus; Site: left antecubital; 18:38 Drug: Ciprofloxacin 500 mg [ciprofloxacin 500 mg tablet (1 tabs)] Route: PO; kc3 Signatures: Dispatcher [employer] Sarai Bellamy MD MD sd1 Selene Dela Cruz, RN RN Cindy Grimes RN RN Cassy Alvarado, Reg Reg gb Denis Harding Christopher, RPA-C RPA-Cck7 Pita Talamantes RN RN kc3 The chart was reviewed and I authenticate all verbal orders and agree with the evaluation and treatment provided.Attachments: 16:13 [facility] Payment Agreement zo 03/09 08:59 T-Sheet-- Draft Copy gb Chart Complete MTDD
[2016-03-15] MEDS ORDERED: FLOM5CAP PO (11:28)
[2016-03-15] MEDS ORDERED: AMOX875T PO (11:28)
[2016-03-15] MEDS ORDERED: APRITAB PO (11:28)
[2016-03-15] MEDS ORDERED: [UNRECOGNIZED DRUG - CODE] PO (11:28)
[2016-03-15] MEDS ORDERED: BACT800T5 PO (11:28)
[2016-03-15] MEDS ORDERED: MUCI600T34 PO (11:28)
[2016-03-15] MEDS ORDERED: CIPR500S PO (11:28)
[2016-03-15] MEDS ORDERED: PHEN-239 PO (11:28)
[2016-03-15] MEDS ORDERED: OXYC1TAB23 PO (11:28)
[2016-03-15] MEDS ORDERED: SING10TA32 PO (11:28)
== END 2016-03-08 19:24 | disposition home or self-care (01) ==
LOC: M ED 14:26
DX: N20.0 Calculus of kidney (principal); N39.0 Urinary tract infection, site not specified; Z87.442 Personal history of urinary calculi; Z79.3 Long term (current) use of hormonal contraceptives
CPT/HCPCS: 36415; 74176; 80048; 80076; 81001; 81025; 82150; 83690; 85025; 87086; 96374; 96375; 99284; J2405

== ENCOUNTER → 2016-03-15 | Outpatient (CLI) | payer OTHER ==
[~2016-03-15] MED LIST changes: +AMOX875T PO; +APRITAB PO; +BACT800T5 PO; +CIPR500S PO; +FLOM5CAP PO; +MUCI600T34 PO; +OXYC1TAB23 PO; +PHEN-239 PO; +SING10TA32 PO; +[UNRECOGNIZED DRUG - CODE] PO
[2016-03-15 08:26] LABS: MEAN CORPUSCULAR HEMOGLOBIN 30.1 pg (27.0-33.0); MEAN CORPUSCULAR HGB CONC 32.3 g/dl (32.0-36.5); MEAN CORPUSCULAR VOLUME 93.3 fl (80.0-96.0); RED CELL DISTRIBUTION WIDTH 13.3 % (11.5-14.5)
[2016-03-15 08:34] LABS: ANION GAP 8 MEQ/L (8-16); BLOOD UREA NITROGEN 13 MG/DL (7-18); CALCIUM LEVEL 8.3 MG/DL (8.5-10.1); CARBON DIOXIDE LEVEL 27 MEQ/L (21-32); CHLORIDE LEVEL 106 MEQ/L (98-107); CREATININE FOR GFR 0.74 MG/DL (0.55-1.02); GLOMERULAR FILTRATION RATE > 60.0 (>60); GLUCOSE, FASTING 79 MG/DL (70-105); POTASSIUM SERUM 4.4 MEQ/L (3.5-5.1); SODIUM LEVEL 141 MEQ/L (136-145)
== END | disposition home or self-care (01) ==
LOC: M LAB 07:35
PROVIDERS: ATTEND Urology
DX: Z01.818 Encounter for other preprocedural examination (principal); N20.0 Calculus of kidney

== ENCOUNTER → 2016-03-22 | Day surgery (SDC) | payer OTHER ==
[~2016-03-22] VITALS: Ht 152.4 cm; Wt 61.2 kg
[~2016-03-22] MED LIST changes: +LIDOCAINE 2% INJ 100 MG/5 ML SDV (FOR ANES.) As Ordered ONE; +LR 1,000 ML IV SCH; +METOCLOPRAMIDE INJ 10MG/2ML VIAL (J2765) As Ordered ONE; +METOCLOPRAMIDE INJ 10MG/2ML VIAL (J2765) IV PRN; +MIDAZOLAM INJ 2 MG/2 ML VIAL (J2250) As Ordered ONE; +ONDANSETRON 4MG/2ML VIAL (J2405) As Ordered ONE; +ONDANSETRON 4MG/2ML VIAL (J2405) IV PRN; +PERCOCET 5MG/325MG TAB As Ordered ONE; +PERCOCET 5MG/325MG TAB PO PRN; +PROPOFOL 200 MG/20 ML VIAL As Ordered ONE; +fentaNYL 100 MCG/2 ML INJECTION (J3010) As Ordered ONE; +fentaNYL 100 MCG/2 ML INJECTION (J3010) IV PRN; +oxyBUTYnin 5 MG TAB PO PRN
[2016-03-22 08:22] LABS: CONTROL LINE UCG INT CTR LINE PRESENT
--- NOTE | 2016-03-22 12:11 | REP ---
RETROGRADE PYELOGRAM: Four views. HISTORY: Nephrolithiasis. 12 seconds of fluoroscopy time is reported. FINDINGS: A sequence of four fluoroscopically obtained procedural spot radiographs of the abdomen document ureteral cannulation, guidewire manipulation and double pigtail ureteral stent placement. No laterality markers are seen. Signed by Jaison Barbour MD 03/22/2016 02:01 P
[2016-03-22 13:06] VITALS: BP 134/82
--- NOTE | 2016-03-22 17:54 | RO ---
DATE OF PROCEDURE: 03/22/2016 PREPROCEDURE DIAGNOSIS: Left kidney stones. POSTPROCEDURE DIAGNOSIS: Left kidney stones. PROCEDURE: Cystoscopy, left ureteroscopy with laser lithotripsy and basket extraction of stones, left retrograde pyelogram with intraoperative interpretation of images, left ureteral stent placement. SURGEON: Dr. Jose Angel Jung DIRECTOR OF MARKETING: None. ANESTHESIA: General. OPERATIVE INDICATIONS: This is a 30-year-old female who recently had a CAT scan of her left flank obtained. It was notable for mild left hydroureteronephrosis with no obstructing stone as well as three nonobstructing left kidney stones measuring up to 7 mm in size. She had likely passed a stone. It was recommended she be brought to the operating room to remove the remaining stones in her left kidney. DESCRIPTION OF PROCEDURE: The patient was brought to the operating room and general anesthesia was induced. Prophylactic antibiotics were infused. She was then placed in the dorsal lithotomy position and prepped and draped in the usual sterile fashion. A rigid cystoscope was then inserted into the urethral meatus and advanced to the bladder. Once within the bladder, two wires were advanced up the left collecting system. One of these wires was secured to the drape to serve as a safety wire. I then advanced a ureteral access sheath over the working wire and this went up into the left collecting system. The wire and the stylet were then removed, leaving the access sheath in place. I then went up the access sheath with a flexible ureteroscope and within the left kidney, three stones were seen, one of which was about 7 mm in the upper pole. The larger stone was fragmented into smaller pieces. These pieces were removed with a stone basket. The stone was fragmented with a 200 micron laser fiber. I then removed the other two stones using a basket. I then examined the remainder of the kidney and no additional stones were seen. At this point, the ureteroscope was removed along with the access sheath and no additional stones were seen within the ureter. I then utilized the safety wire to advance a 6-[place] x 22-32 JJ ureteral stent up to the left collecting system. The wire was then removed, and there were adequate coils of the stent in the left renal pelvis and in the bladder. The bladder was then emptied of all fluids and this marked the conclusion of the procedure. The patient was then taken out of the dorsal lithotomy position, awakened from anesthesia and transported to the recovery room in stable condition. ESTIMATED BLOOD LOSS: 0 mL. COMPLICATIONS: None. SPECIMENS: Left kidney stones. PLAN: The patient will be discharged home and will followup in the clinic in a week or two for stent removal. LIA
== END ==
LOC: M SDC 07:26
PROVIDERS: ATTEND Urology
DX: N20.0 Calculus of kidney (principal); Z87.442 Personal history of urinary calculi; Z88.8 Allergy status to other drugs, medicaments and biological substances
CPT/HCPCS: 52352; 52356; 74420; 82360; 84703; 88300; J0690; J2250; J2405; J2765; J3010

== ENCOUNTER → 2016-04-08 | Outpatient (REF) | payer OTHER ==
[~2016-04-08] MED LIST changes: -LIDOCAINE 2% INJ 100 MG/5 ML SDV (FOR ANES.) As Ordered ONE; -LR 1,000 ML IV SCH; -METOCLOPRAMIDE INJ 10MG/2ML VIAL (J2765) As Ordered ONE; -METOCLOPRAMIDE INJ 10MG/2ML VIAL (J2765) IV PRN; -MIDAZOLAM INJ 2 MG/2 ML VIAL (J2250) As Ordered ONE; -ONDANSETRON 4MG/2ML VIAL (J2405) As Ordered ONE; -ONDANSETRON 4MG/2ML VIAL (J2405) IV PRN; -PERCOCET 5MG/325MG TAB As Ordered ONE; -PERCOCET 5MG/325MG TAB PO PRN; -PROPOFOL 200 MG/20 ML VIAL As Ordered ONE; -fentaNYL 100 MCG/2 ML INJECTION (J3010) As Ordered ONE; -fentaNYL 100 MCG/2 ML INJECTION (J3010) IV PRN; -oxyBUTYnin 5 MG TAB PO PRN
== END | disposition home or self-care (01) ==
LOC: M SFHCLERA 16:51
PROVIDERS: ATTEND Physician Assistant
DX: J02.9 Acute pharyngitis, unspecified (principal)

== ENCOUNTER → 2016-05-12 | Outpatient (REF) | payer OTHER | LOC: M SFHCLERA 10:23 | PROVIDERS: ATTEND Physician Assistant | DX: J02.9 Acute pharyngitis, unspecified (principal) ==

== ENCOUNTER → 2016-05-28 | Outpatient (CLI) | payer OTHER ==
[2016-05-28 09:53] LABS: IONIZED CALCIUM 4.6 MG/DL (4.5-5.3)
[2016-05-28 10:15] LABS: ANION GAP 6 MEQ/L (8-16); BLOOD UREA NITROGEN 16 MG/DL (7-18); CALCIUM LEVEL 8.1 MG/DL (8.5-10.1); CARBON DIOXIDE LEVEL 27 MEQ/L (21-32); CHLORIDE LEVEL 106 MEQ/L (98-107); CREATININE FOR GFR 0.65 MG/DL (0.55-1.02); GLOMERULAR FILTRATION RATE > 60.0 (>60); GLUCOSE, FASTING 106 MG/DL (70-105); MAGNESIUM LEVEL 1.7 MG/DL (1.8-2.4); PHOSPHORUS LEVEL 1.5 MG/DL (2.5-4.9); SODIUM LEVEL 139 MEQ/L (136-145); URIC ACID 3.1 MG/DL (2.6-6.0)
== END ==
LOC: M LAB 09:19
PROVIDERS: ATTEND Urology
DX: N20.0 Calculus of kidney (principal)

== ENCOUNTER → 2016-09-12 | Outpatient (CLI) | payer OTHER ==
[~2016-09-12] MED LIST changes: +IBUP1TAB7 PO; -IBUP800T23 PO; -MUCI600T34 PO; +MUCI600T37 PO
--- NOTE | 2016-09-12 11:49 | REP ---
Supine abdomen single AP view: Comparisons are 10/05/[address] of the abdomen pelvis of 03/25/2016. There is a tiny calcification superimposed over the right renal lower pole and a tiny calcification superimposed over the left renal lower pole. These are nonspecific as there is superimposed bowel and these could represent bowel artifacts. No calcifications are identified along the courses of the ureters or in the pelvis. The bowel gas pattern is normal. Skeletal structures are unremarkable. Impression: Calcifications as described. Signed by Dick Rivera MD 09/12/2016 11:40 A
== END ==
LOC: M SMT 11:00
PROVIDERS: ATTEND Urology
DX: N20.0 Calculus of kidney (principal)

== ENCOUNTER → 2017-02-03 | Outpatient (CLI) | payer OTHER ==
--- NOTE | 2017-02-03 10:21 | REP ---
Supine abdomen: Comparison 09/12/2016. On the comparison study there was a single calcification project over the lower pole of each kidney. These calcifications are no longer identified on the current study, however, there is superimposed bowel gas obscuring visualization. No calcifications are identified along the courses of either the right and left ureters or in the urinary bladder. The bowel gas pattern is normal. Skeletal structures and soft tissues otherwise are unremarkable. Impression: No calcifications are identified on the study today. Signed by Dick Rivera MD 02/03/2017 10:12 A
== END ==
LOC: M SMT 09:21
PROVIDERS: ATTEND Nurse Practitioner Family
DX: N20.0 Calculus of kidney (principal)

== ENCOUNTER → 2017-10-10 | Outpatient (CLI) | payer OTHER ==
[2017-10-10 11:46] LABS: BASO % 0.4 % (0.0-1.0); EOS % 0.3 % (0.0-3.0); HEMATOCRIT 42.1 % (36.0-47.0); HEMOGLOBIN 13.8 g/dl (12.0-15.5); IMMATURE GRANULOCYTE % 0.3 % (0-3.0); LYMPH % 28.4 % (24.0-44.0); MEAN CORPUSCULAR HEMOGLOBIN 29.4 pg (27.0-33.0); MEAN CORPUSCULAR HGB CONC 32.8 g/dl (32.0-36.5); MEAN CORPUSCULAR VOLUME 89.6 fl (80.0-96.0); MONO # 0.4 10^3/uL (0.0-0.8); MONO % 5.6 % (0.0-5.0); NEUTROPHILS # 4.6 10^3/uL (1.8-7.7); PLATELET COUNT, AUTOMATED 239 10^3/uL (150-450); RED CELL DISTRIBUTION WIDTH 13.2 % (11.5-14.5); WHITE BLOOD COUNT 7.1 10^3/uL (4.0-10.0)
[2017-10-10 12:18] LABS: ALBUMIN 3.7 GM/DL (3.2-5.2); ALKALINE PHOSPHATASE 101 U/L (45-117); ALT/SGPT 32 U/L (12-78); ANION GAP 8 MEQ/L (8-16); AST/SGOT 22 U/L (7-37); BILIRUBIN,TOTAL 0.6 MG/DL (0.2-1.0); BLOOD UREA NITROGEN 11 MG/DL (7-18); CARBON DIOXIDE LEVEL 28 MEQ/L (21-32); CHLORIDE LEVEL 105 MEQ/L (98-107); CHOLESTEROL LEVEL 186 MG/DL (<200); CHOLESTEROL RISK RATIO 3.152 (<5); CREATININE FOR GFR 0.66 MG/DL (0.55-1.30); GLOMERULAR FILTRATION RATE > 60.0 (>60); GLUCOSE, FASTING 84 MG/DL (70-100); HDL CHOLESTEROL 59 MG/DL (>40); LDL CHOLESTEROL 105.6 MG/DL (<100); NON-HDL-C 127 MG/DL; POTASSIUM SERUM 4.3 MEQ/L (3.5-5.1); SODIUM LEVEL 141 MEQ/L (136-145); TOTAL PROTEIN 7.4 GM/DL (6.4-8.2); TRIGLYCERIDES LEVEL 107 MG/DL (<150)
== END ==
LOC: M LAB 11:10
DX: Z00.00 Encounter for general adult medical examination without abnormal findings (principal)
CPT/HCPCS: 84443

== ENCOUNTER → 2018-01-06 | Outpatient (CLI) | payer OTHER | LOC: M LRY 19:36 | DX: S09.92XA Unspecified injury of nose, initial encounter (principal); X58.XXXA Exposure to other specified factors, initial encounter; Y92.9 Unspecified place or not applicable | CPT/HCPCS: G0463 ==

== ENCOUNTER 2018-03-19 12:55 | Emergency (ER) | payer OTHER ==
[~2018-03-19] VITALS: Ht 157.5 cm; Wt 65.5 kg
[~2018-03-19 12:55] MED LIST changes: +FLOM0.4C39 PO; -FLOM5CAP PO
[2018-03-19 13:37] LABS: HEMATOCRIT 41.3 % (36.0-47.0); HEMOGLOBIN 13.7 g/dl (12.0-15.5); MEAN CORPUSCULAR HEMOGLOBIN 30.4 pg (27.0-33.0); MEAN CORPUSCULAR HGB CONC 33.2 g/dl (32.0-36.5); MEAN CORPUSCULAR VOLUME 91.8 fl (80.0-96.0); PLATELET COUNT, AUTOMATED 209 10^3/uL (150-450); WHITE BLOOD COUNT 6.3 10^3/uL (4.0-10.0)
[2018-03-19 13:40] LABS: URINE PREG TEST NEGATIVE (NEGATIVE)
[2018-03-19 13:58] LABS: BLOOD UREA NITROGEN 19 MG/DL (7-18); CALCIUM LEVEL 8.8 MG/DL (8.5-10.1); CARBON DIOXIDE LEVEL 22 MEQ/L (21-32); CHLORIDE LEVEL 101 MEQ/L (98-107); CREATININE FOR GFR 0.83 MG/DL (0.55-1.30); GLOMERULAR FILTRATION RATE > 60.0 (>60); GLUCOSE, FASTING 73 MG/DL (70-100); SODIUM LEVEL 136 MEQ/L (136-145)
[2018-03-19 16:00] VITALS: BP 138/94
--- NOTE | 2018-03-19 16:40 | REP ---
CT abdomen and pelvis without IV or oral contrast: History: Left flank pain. Renal colic. Comparison study: March 08, 2016. CT findings: Digital preliminary model photographers' radiograph shows a normal bowel gas pattern. The lung bases are clear on axial CT images. The liver and the spleen are normal in size and homogeneous in texture. No adrenal lesion is seen. The pancreas is unremarkable. The gallbladder is small and contracted in appearance. There are multiple intrarenal calculi. These are noted bilaterally. The largest of these is in the lower pole on the left measuring 6 mm in diameter. There are six to seven separate calculi in each kidney. There is no evidence of hydronephrosis, however, on either side. No evidence of ureteral or bladder calculus is seen. The uterus is retroverted and retroflexed. No adnexal mass or cyst is seen. Small and large intestinal bowel loops are unremarkable. The cecum is deep within the pelvis and the appendix terminates to the left of midline in the anterocentral pelvis. There is no evidence of appendiceal inflammation. Impression: Bilateral intrarenal nephrolithiasis. No hydronephrosis or ureteral stones seen. No bladder calculus seen. Retroverted retroflexed uterus. Normal appendix in the left pelvis. No acute intra-abdominal abnormality. Electronically Signed by Jaison Barbour MD 03/19/2018 05:28 P
== END 2018-03-19 16:43 | disposition home or self-care (01) ==
LOC: M ED 12:55
DX: O99.89 Other specified diseases and conditions complicating pregnancy, childbirth and the puerperium (principal); N23 Unspecified renal colic; Z87.442 Personal history of urinary calculi; Z87.440 Personal history of urinary (tract) infections; Z3A.00 Weeks of gestation of pregnancy not specified; Z98.890 Other specified postprocedural states

== ENCOUNTER → 2018-03-24 | Outpatient (CLI) | payer OTHER ==
[2018-03-24 15:55] LABS: INR 1.05; PROTHROMBIN TIME 13.8 SECONDS (12.1-14.4)
[2018-03-24 15:56] LABS: PARTIAL THROMBOPLASTIN TIME 30.9 SECONDS (25.4-37.6)
[2018-03-24 16:05] LABS: HCG, SERUM QUALITATIVE NEGATIVE (NEGATIVE)
== END ==
LOC: M SMT 15:00
PROVIDERS: ATTEND Nurse Practitioner Women's Health
DX: Z01.812 Encounter for preprocedural laboratory examination (principal); N20.0 Calculus of kidney

== ENCOUNTER → 2018-03-24 | Outpatient (REF) | payer OTHER ==
[2018-03-24 19:13] LABS: APPEARANCE, URINE HAZY (CLEAR); BACTERIA, URINE AUTO 1+ (NEGATIVE); BILIRUBIN, URINE AUTO NEGATIVE (NEGATIVE); BLOOD, URINE BLOOD NEGATIVE (NEGATIVE); COLOR, URINE YELLOW (YELLOW); GLUCOSE, URINE (UA) AUTO NEGATIVE (NEGATIVE); KETONE, URINE AUTO TRACE mg/dL (NEGATIVE); LEUKOCYTE ESTERASE, URINE AUTO 1+ (NEGATIVE); MUCUS, URINE SMALL (NEGATIVE); NITRITE, URINE AUTO NEGATIVE (NEGATIVE); PROTEIN, URINE AUTO NEGATIVE (NEGATIVE); RBC, URINE AUTO 2 /HPF (0-3); SPECIFIC GRAVITY URINE AUTO 1.019 (1.002-1.035); SQUAMOUS EPITHELIAL CELL UR AU 3 /HPF (0-6); UROBILINOGEN, URINE AUTO 0.2 mg/dL (0.0-2.0); WBC, URINE AUTO 11 /HPF (0-3)
== END ==
LOC: M SMT 17:56
PROVIDERS: ATTEND Nurse Practitioner Women's Health
DX: Z01.812 Encounter for preprocedural laboratory examination (principal); N20.0 Calculus of kidney
CPT/HCPCS: 36415; 81001; 84703; 85610; 85730; 87086; G0463

== ENCOUNTER 2018-03-26 08:57 | Day surgery (SDC) | payer OTHER ==
[~2018-03-26] VITALS: Ht 156.8 cm; Wt 66.2 kg
--- NOTE | 2018-03-26 09:09 | REP ---
KUB: Single view. History: Kidney stone. Comparison film is from February 03, 2017. Recent CT findings are reviewed from March 19, 2018. Findings: There are 3 mm calcific opacities projecting over the upper pole and lower pole of the left kidney and the lower pole of the right kidney. No ureteral calculus is appreciated. No bladder calculus is seen. The bowel gas pattern is normal. No bony abnormality is seen. Psoas margins and flank stripes are intact. Impression: Findings consistent with bilateral intrarenal nephrolithiasis. This correlates with the recent CT findings. Electronically Signed by Jaison Barbour MD 03/26/2018 09:00 A
[2018-03-26] MEDS ORDERED: ceFAZolin 2 GM/D5W 50 ML IV BAG (J0690 PER 500MG) As Ordered ONE (09:20)
[2018-03-26] MEDS ORDERED: LIDOCAINE 2% INJ 100 MG/5 ML SDV (FOR ANES.) As Ordered ONE (10:22)
[2018-03-26] MEDS ORDERED: PROPOFOL 200 MG/20 ML VIAL As Ordered ONE ×2 (10:22→10:23)
[2018-03-26] MEDS ORDERED: MIDAZOLAM INJ 2 MG/2 ML VIAL (J2250) As Ordered ONE (10:22)
[2018-03-26] MEDS ORDERED: fentaNYL 100 MCG/2 ML INJECTION (J3010) As Ordered ONE (10:23)
[2018-03-26] MEDS ORDERED: ONDANSETRON 4MG/2ML VIAL (J2405) As Ordered ONE (11:39)
[2018-03-26] MEDS ORDERED: PERCOCET 5MG/325MG TAB PO PRN (12:30)
[2018-03-26 12:45] VITALS: BP 133/84
--- NOTE | 2018-03-26 12:49 | RO ---
DATE OF PROCEDURE: 03/26/2018 PREPROCEDURE DIAGNOSIS: Left kidney stones. POSTPROCEDURE DIAGNOSIS: Left kidney stones. PROCEDURE: Left extracorporal shockwave lithotripsy. SURGEON: Dr. Jose Angel Jung. HOSPITALITY HOST: None. ANESTHESIA: Monitored anesthesia care (MAC). OPERATIVE INDICATION: This is an 32-year-old female who was recently found to have an few nonobstructing stone in the left kidney measuring up to 6 mm. She was brought to the operating room today for the above listed procedure. DESCRIPTION OF PROCEDURE: The patient was brought to the operating room and MAC anesthesia was administered. Prophylactic antibiotics were infused. She was then placed in supine position in preparation for left-sided extracorporal shockwave lithotripsy. Fluoroscopy and ultrasonography were utilized to monitor stone position and fragmentation throughout the procedure. Shockwaves were delivered first to the larger stone, which was in the lower pole and was approximately 6 mm in size. Shockwave was delivered ungated. The stone did fragment well. The remainder of the shocks were then delivered to an upper pole stone which was approximately 3-4 mm in size. Once a total of 2500 shocks were delivered, the procedure was concluded. There were no arrhythmias. The patient was then awakened from anesthesia and transported to the recovery room in stable condition. ESTIMATED BLOOD LOSS: 0 mL COMPLICATIONS: None. SPECIMENS: None. PLAN: Patient will followup in the clinic in a few weeks with imaging prior to test for residual stone burden.
== END 2018-03-26 12:51 | disposition home or self-care (01) ==
LOC: M SDC 08:57
PROVIDERS: ATTEND Urology
DX: N20.0 Calculus of kidney (principal); Z88.8 Allergy status to other drugs, medicaments and biological substances
CPT/HCPCS: 50590; 74018; J2250; J2405; J3010

== ENCOUNTER → 2018-04-20 | Outpatient (CLI) | payer OTHER ==
--- NOTE | 2018-04-20 14:01 | REP ---
Clinical: Nephrolithiasis. Technique: Single supine view of the abdomen and pelvis. Comparison: 03/26/2018. Findings: Small bilateral intrarenal calculi measuring up to 2 mm are identified. Bowel gas pattern is nonspecific. No organomegaly. Skeletal structures intact. Impression: Small bilateral intrarenal calculi Electronically Signed by Odilon Bear MD 04/20/2018 01:53 P
== END ==
LOC: M SMT 13:37
PROVIDERS: ATTEND Urology
DX: N20.0 Calculus of kidney (principal)

== ENCOUNTER → 2018-04-28 | Outpatient (REF) | payer OTHER ==
[2018-04-29 10:09] LABS: HEPATITIS C VIRUS ABY INDEX < 0.0 INDEX (<0.8); HIV 1&2 SCREEN CENTAUR NEGATIVE (NEGATIVE)
== END ==
LOC: M LAB REF 13:02
PROVIDERS: ATTEND Nurse Practitioner Women's Health
DX: Z01.419 Encounter for gynecological examination (general) (routine) without abnormal findings (principal)

== ENCOUNTER → 2018-10-20 | Outpatient (CLI) | payer OTHER ==
[~2018-10-20] MED LIST changes: -/MOM400 PO; -ACET50TA PO; -DOCU10ELUD PO; +DOCU5LIQ PO; +MAPA500T17 PO; +MILK10SU PO
[2018-10-20 09:07] LABS: CHOLESTEROL RISK RATIO 2.687 (<5); THYROID STIMULATING HORMONE 3.43 uIU/ML (0.358-3.740)
== END ==
LOC: M LAB 08:07
PROVIDERS: ATTEND Family Medicine
DX: R03.0 Elevated blood-pressure reading, without diagnosis of hypertension (principal); E66.09 Other obesity due to excess calories; G47.00 Insomnia, unspecified

== ENCOUNTER → 2019-01-11 | Outpatient (REF) | payer OTHER | LOC: M SFHCLERA 09:56 | PROVIDERS: ATTEND Physician Assistant | DX: R50.9 Fever, unspecified (principal) ==

== ENCOUNTER → 2019-06-01 | Outpatient (CLI) | payer OTHER | LOC: M LABSMTC 13:42 | PROVIDERS: ATTEND Family Medicine | DX: Z11.59 Encounter for screening for other viral diseases (principal); Z20.828 Contact with and (suspected) exposure to other viral communicable diseases ==

== ENCOUNTER → 2019-11-30 | Outpatient (REF) | payer OTHER | LOC: M LAB REF 10:29 | PROVIDERS: ATTEND Physician Assistant | DX: J02.9 Acute pharyngitis, unspecified (principal) ==

== ENCOUNTER → 2020-01-11 | Outpatient (CLI) | payer OTHER | LOC: M OUTALCOH 07:38 | PROVIDERS: ATTEND Psychiatry & Neurology Addiction Medicine | DX: Z13.39 Encounter for screening examination for other mental health and behavioral disorders (principal); F10.20 Alcohol dependence, uncomplicated ==

== ENCOUNTER 2020-01-17 14:59 | Outpatient (RCR) | payer OTHER | END 2020-01-24 | LOC: M OUTALCOH 14:59 | PROVIDERS: ATTEND Psychiatry & Neurology Addiction Medicine | DX: F10.20 Alcohol dependence, uncomplicated (principal); F14.20 Cocaine dependence, uncomplicated ==

== ENCOUNTER → 2020-02-24 | Outpatient (RCR) | payer OTHER | LOC: M OUTALCOH 01-25 12:58 | PROVIDERS: ATTEND Psychiatry & Neurology Addiction Medicine | DX: F10.20 Alcohol dependence, uncomplicated (principal); F14.20 Cocaine dependence, uncomplicated ==

== ENCOUNTER 2020-03-23 11:00 | Outpatient (RCR) | payer OTHER | END 2020-03-26 | LOC: M OUTALCOH 11:00 | PROVIDERS: ATTEND Psychiatry & Neurology Addiction Medicine | DX: F10.20 Alcohol dependence, uncomplicated (principal); F14.20 Cocaine dependence, uncomplicated | CPT/HCPCS: 90834; H0038 ==

== ENCOUNTER 2020-04-20 11:00 | Outpatient (RCR) | payer OTHER | END 2020-04-23 | LOC: M OUTALCOH 11:00 | PROVIDERS: ATTEND Psychiatry & Neurology Psychiatry | DX: F10.20 Alcohol dependence, uncomplicated (principal); F14.20 Cocaine dependence, uncomplicated | CPT/HCPCS: 90834; H0038 ==

== ENCOUNTER 2020-05-22 14:00 | Outpatient (RCR) | payer OTHER | END 2020-05-24 | LOC: M OUTALCOH 14:00 | PROVIDERS: ATTEND Psychiatry & Neurology Psychiatry | DX: F10.20 Alcohol dependence, uncomplicated (principal); F14.20 Cocaine dependence, uncomplicated | CPT/HCPCS: 90832; 90834; H0038 ==

== ENCOUNTER 2020-06-21 09:30 | Outpatient (RCR) | payer OTHER | END 2020-06-23 | LOC: M OUTALCOH 09:30 | PROVIDERS: ATTEND Psychiatry & Neurology Psychiatry | DX: F10.20 Alcohol dependence, uncomplicated (principal); F14.20 Cocaine dependence, uncomplicated ==

== ENCOUNTER → 2022-03-19 | Outpatient (CLI) | payer BC ==
[2022-03-19 11:08] LABS: BASO % 0.5 % (0.0-1.0); EOS % 0.3 % (0.0-3.0); HEMATOCRIT 44.8 % (36.0-47.0); HEMOGLOBIN 14.1 g/dl (12.0-15.5); LYMPH # 2.3 10^3/uL (1.5-5.0); LYMPH % 36.1 % (24.0-44.0); MEAN CORPUSCULAR HGB CONC 31.5 g/dl (32.0-36.5); MEAN CORPUSCULAR VOLUME 95.3 fl (80.0-96.0); MONO # 0.4 10^3/uL (0.0-0.8); NEUTROPHILS # 3.7 10^3/uL (1.5-8.5); NEUTROPHILS % 56.8 % (36.0-66.0); PLATELET COUNT, AUTOMATED 230 10^3/uL (150-450); WHITE BLOOD COUNT 6.5 10^3/uL (4.0-10.0)
[2022-03-19 11:33] LABS: FREE T4 0.96 NG/DL (0.89-1.76)
[2022-03-19 11:35] LABS: THYROID STIMULATING HORMONE 2.194 uIU/ML (0.55-4.78); TOTAL 25(OH) VITAMIN D 34.2 NG/ML (20.0-100.0)
[2022-03-19 11:39] LABS: ALBUMIN 3.5 G/DL (3.2-5.2); ALKALINE PHOSPHATASE 51 U/L (46-116); ALT/SGPT < 9 U/L (7.0-40); AST/SGOT 14 U/L (<34); BILIRUBIN,TOTAL 0.8 MG/DL (0.3-1.2); BLOOD UREA NITROGEN 17 MG/DL (9-23); CALCIUM LEVEL 8.8 MG/DL (8.5-10.1); CARBON DIOXIDE LEVEL 26 MMOL/L (20-31); CHLORIDE LEVEL 107 MMOL/L (98-107); CHOLESTEROL LEVEL 181 MG/DL (<200); CHOLESTEROL RISK RATIO 3.58 (<5); CREATININE FOR GFR 0.81 MG/DL (0.55-1.30); GLOMERULAR FILTRATION RATE > 60.0 (>60); GLUCOSE, FASTING 79 MG/DL (60-100); HDL CHOLESTEROL 50.5 MG/DL (>40); LDL CHOLESTEROL 104.5 MG/DL (<100); NON-HDL-C 131 MG/DL; POTASSIUM SERUM 4.8 MMOL/L (3.5-5.1); SODIUM LEVEL 138 MMOL/L (136-145); TOTAL PROTEIN 6.7 G/DL (5.7-8.2); TRIGLYCERIDES LEVEL 130 MG/DL (<150)
== END ==
LOC: M PLALAB 08:19
PROVIDERS: ATTEND Nurse Practitioner Family
DX: Z00.00 Encounter for general adult medical examination without abnormal findings (principal)

== ENCOUNTER → 2023-01-13 | Outpatient (CLI) | payer BC ==
[~2023-01-13] MED LIST changes: +MONT-5 PO; -SING10TA32 PO
== END ==
LOC: M RAD 08:57
PROVIDERS: ATTEND Obstetrics & Gynecology
DX: R10.2 Pelvic and perineal pain (principal)

== ENCOUNTER 2023-03-12 09:41 | Day surgery (SDC) | payer BC ==
[~2023-03-12] VITALS: Ht 154.9 cm; Wt 68.9 kg
[~2023-03-12 09:41] MED LIST changes: +AMOX500C PO; +ASHL1TAB PO; +IBUP200C27 PO; +PROBCAP14 PO
[2023-03-12] MEDS ORDERED: LR 1,000 ML IV SCH ×3 (10:10→16:30)
[2023-03-12 10:25] LABS: HEMATOCRIT 43.3 % (36.0-47.0); HEMOGLOBIN 14.2 g/dl (12.0-15.5); MEAN CORPUSCULAR HEMOGLOBIN 30.5 pg (27.0-33.0); MEAN CORPUSCULAR HGB CONC 32.8 g/dl (32.0-36.5); MEAN CORPUSCULAR VOLUME 93.1 fl (80.0-96.0); PLATELET COUNT, AUTOMATED 261 10^3/uL (150-450); RED BLOOD COUNT 4.65 10^6/uL (4.00-5.40); WHITE BLOOD COUNT 6.6 10^3/uL (4.0-10.0)
[2023-03-12 10:41] LABS: BLOOD UREA NITROGEN 13 MG/DL (9-23); CALCIUM LEVEL 8.6 MG/DL (8.5-10.1); CARBON DIOXIDE LEVEL 26 MMOL/L (20-31); CHLORIDE LEVEL 107 MMOL/L (98-107); CREATININE FOR GFR 0.78 MG/DL (0.55-1.30); GLOMERULAR FILTRATION RATE > 60.0 (>60); GLUCOSE, FASTING 82 MG/DL (60-100); POTASSIUM SERUM 4.1 MMOL/L (3.5-5.1); SODIUM LEVEL 139 MMOL/L (136-145)
[2023-03-12] MEDS ORDERED: ceFAZolin SOD 2 GM in IV 1 EA IV ONE (11:00)
[2023-03-12] MEDS ORDERED: FLUORESCEIN 10% (100MG/ML) 5ML VIAL As Ordered ONE (12:04)
[2023-03-12] MEDS ORDERED: LIDOCAINE 2% 100MG/5ML SDV (FOR ANES.) As Ordered ONE (12:26)
[2023-03-12] MEDS ORDERED: MIDAZOLAM INJ 2MG/2ML VIAL As Ordered ONE (12:26)
[2023-03-12] MEDS ORDERED: fentaNYL 100 MCG/2 ML INJECTION As Ordered ONE (12:26)
[2023-03-12] MEDS ORDERED: KETOROLAC 60MG 2ML VIAL As Ordered ONE (12:26)
[2023-03-12] MEDS ORDERED: HYDROmorphone HCL 2MG/ML 1ML VIAL As Ordered ONE (12:26)
[2023-03-12] MEDS ORDERED: ONDANSETRON 4MG 2ML VIAL As Ordered ONE (12:26)
[2023-03-12] MEDS ORDERED: ROCURONIUM BROMIDE 50MG/5ML VIAL As Ordered ONE (12:26)
[2023-03-12] MEDS ORDERED: propofoL 200 MG/20 ML VIAL As Ordered ONE (12:26)
[2023-03-12] MEDS ORDERED: SUGAMMADEX SODIUM 500 MG/5 ML VIAL (BRIDION) As Ordered ONE (12:26)
[2023-03-12] MEDS ORDERED: PHENYLephrine 500MCG 5ML (100MCG/ML) SYRINGE As Ordered ONE (12:54)
[2023-03-12] MEDS ORDERED: ePHEDrine SULFATE 25 MG/5 ML(5MG/ML) SYRINGE As Ordered ONE (12:54)
[2023-03-12] MEDS ORDERED: PERC5TAB12 PO (13:35)
[2023-03-12] MEDS ORDERED: fentaNYL 100 MCG/2 ML INJECTION IV PRN (13:40)
[2023-03-12] MEDS ORDERED: ONDANSETRON 4MG 2ML VIAL IV PRN (13:40)
[2023-03-12] MEDS: HYDROMORPHONE HCL 0.5 MG/ 0.5 ML SYRINGE IV PRN ×2 (13:53→13:58)
[2023-03-12] MEDS: oxyCODONE 5MG TAB PO PRN ×2 (13:53→14:34)
[2023-03-12 15:05] VITALS: BP 163/91; TEMP 98; O2SAT 99
[2023-03-12] MEDS ORDERED: PERCOCET 5MG/325MG TAB PO PRN (16:35)
[2023-03-12] MEDS ORDERED: SIMETHICONE 80MG CHEW TAB PO SCH (18:00)
[2023-03-12] MEDS ORDERED: IBUPROFEN 800 MG TAB PO PRN (18:00)
== END 2023-03-12 15:36 | disposition home or self-care (01) ==
LOC: M SDC 09:41
PROVIDERS: ATTEND Obstetrics & Gynecology
DX: D25.1 Intramural leiomyoma of uterus (principal); N92.0 Excessive and frequent menstruation with regular cycle; R10.2 Pelvic and perineal pain; Z98.51 Tubal ligation status; Z90.49 Acquired absence of other specified parts of digestive tract
CPT/HCPCS: 58571; 80048; 81025; 85027; 86850; 86900; 86901; 88307; J0665; J0690; J1100; J1170; J1885; J2250; J2371; J2405; J3010; S2900

== ENCOUNTER → 2023-06-20 | Outpatient (CLI) | payer BC ==
[~2023-06-20] MED LIST changes: +PERC5TAB12 PO
[2023-06-20 12:17] LABS: BASO # 0.1 10^3/uL (0.0-0.2); BASO % 0.7 % (0.0-1.0); EOS # 0.1 10^3/uL (0.0-0.5); EOS % 0.7 % (0.0-3.0); HEMATOCRIT 44.4 % (36.0-47.0); HEMOGLOBIN 14.5 g/dl (12.0-15.5); LYMPH # 2.3 10^3/uL (1.5-5.0); LYMPH % 32.2 % (24.0-44.0); MEAN CORPUSCULAR HEMOGLOBIN 30.6 pg (27.0-33.0); MEAN CORPUSCULAR HGB CONC 32.7 g/dl (32.0-36.5); MEAN CORPUSCULAR VOLUME 93.7 fl (80.0-96.0); MONO # 0.4 10^3/uL (0.0-0.8); MONO % 5.7 % (2.0-8.0); NEUTROPHILS # 4.4 10^3/uL (1.5-8.5); NEUTROPHILS % 60.6 % (36.0-66.0); PLATELET COUNT, AUTOMATED 215 10^3/uL (150-450); RED BLOOD COUNT 4.74 10^6/uL (4.00-5.40); WHITE BLOOD COUNT 7.2 10^3/uL (4.0-10.0)
[2023-06-20 12:27] LABS: HCG, SERUM QUALITATIVE NEGATIVE (NEGATIVE)
[2023-06-20 12:29] LABS: ERYTHROCYTE SEDIMENTATION RATE 25 mm/hr (0-20)
[2023-06-20 12:35] LABS: HEMOGLOBIN A1c 4.9 % (4.0-6.0)
[2023-06-20 12:41] LABS: C REACTIVE PROTEIN QUANTITATIV < 0.40 MG/DL (<1.0)
[2023-06-20 12:42] LABS: TOTAL IRON BINDING CAPACITY 326 UG/DL (250-425)
[2023-06-20 12:43] LABS: ALBUMIN 3.8 G/DL (3.2-5.2); ALKALINE PHOSPHATASE 76 U/L (46-116); ALT/SGPT 19 U/L (7.0-40); AST/SGOT 16 U/L (<34); BILIRUBIN,TOTAL 0.6 MG/DL (0.3-1.2); BLOOD UREA NITROGEN 17 MG/DL (9-23); CALCIUM LEVEL 9.2 MG/DL (8.5-10.1); CARBON DIOXIDE LEVEL 27 MMOL/L (20-31); CHLORIDE LEVEL 106 MMOL/L (98-107); CHOLESTEROL LEVEL 182 MG/DL (<200); CHOLESTEROL RISK RATIO 3.35 (<5); GLOMERULAR FILTRATION RATE > 60.0 (>60); GLUCOSE, FASTING 88 MG/DL (60-100); HDL CHOLESTEROL 54.3 MG/DL (>40); IRON (FE) 67 UG/DL (50-170); LDL CHOLESTEROL 109.3 MG/DL (<100); NON-HDL-C 127.7 MG/DL; PERCENT SATURATION 20.6 % (13.2-45.0); POTASSIUM SERUM 4.4 MMOL/L (3.5-5.1); SODIUM LEVEL 138 MMOL/L (136-145); THYROID PEROXIDASE ANTIBODY 38 U/ML (<60.0); THYROID STIMULATING HORMONE 1.426 uIU/ML (0.55-4.78); TOTAL 25(OH) VITAMIN D 23.2 NG/ML (20.0-100.0); TOTAL PROTEIN 7.1 G/DL (5.7-8.2); TRIGLYCERIDES LEVEL 92 MG/DL (<150)
[2023-06-20 12:44] LABS: FREE T3 3.2 PG/ML (2.3-4.2)
[2023-06-20 12:45] LABS: FREE T4 0.98 NG/DL (0.89-1.76)
[2023-06-21 15:08] LABS: ANTINUCLEAR ANTIBODIES DIRECT Negative (Negative); INSULIN LEVEL 10.8 uIU/mL (2.6-24.9)
== END ==
LOC: M PLALAB 10:07
PROVIDERS: ATTEND Nurse Practitioner Family
DX: R63.5 Abnormal weight gain (principal)

== ENCOUNTER → 2023-11-28 | Outpatient (CLI) | payer BC | LOC: M PLAIMG 08:53 | PROVIDERS: ATTEND Nurse Practitioner Family | DX: Z02.1 Encounter for pre-employment examination (principal) ==

== ENCOUNTER → 2024-02-19 | Outpatient (CLI) | payer BC ==
[2024-02-19 09:58] LABS: HIV 1&2 SCREEN NEGATIVE (NEGATIVE)
[2024-02-19 10:06] LABS: HEPATITIS C VIRUS ABY INDEX < 0.02 INDEX (<0.8)
[2024-02-19 10:12] LABS: Trichomonas vaginalis (AMP) NOT DETECTED (NEGATIVE)
[2024-02-19 10:36] LABS: GC DNA AMPLIFICATION NEGATIVE (NEGATIVE)
== END ==
LOC: M LAB 08:26
PROVIDERS: ATTEND Nurse Practitioner Family
DX: R35.0 Frequency of micturition (principal); Z11.3 Encounter for screening for infections with a predominantly sexual mode of transmission

== ENCOUNTER → 2024-03-11 | Outpatient (CLI) | payer BC | LOC: M RAD 11:21 | PROVIDERS: ATTEND Physician Assistant Medical | DX: M25.512 Pain in left shoulder (principal) ==

== ENCOUNTER 2024-06-22 14:58 | Emergency (ER) | payer BC ==
[~2024-06-22] VITALS: Ht 154.9 cm; Wt 60.4 kg
[~2024-06-22 14:58] MED LIST changes: -FLOM0.4C39 PO; -PHEN-239 PO; +PHEN37.511 PO; +TAMS-18 PO
[2024-06-22 15:51] LABS: KETONE, URINE AUTO RFX NEGATIVE (NEGATIVE); LEUKOCYTE ESTERASE UR AUTO RFX 2+ (NEGATIVE); MUCUS, URINE RFX SMALL (NEGATIVE); NITRITE, URINE AUTO RFX NEGATIVE (NEGATIVE); RBC, URINE AUTO RFX TNTC /HPF (0-3); SQUAM EPITHELIAL CELL UR AURFX 4 /HPF (0-6); WBC, URINE AUTO RFX TNTC /HPF (0-3)
[2024-06-22 16:40] LABS: BASO % 0.5 % (0.0-1.0); EOS % 0.6 % (0.0-3.0); HEMATOCRIT 41.5 % (36.0-47.0); HEMOGLOBIN 13.6 g/dl (12.0-15.5); LYMPH % 32.8 % (24.0-44.0); MEAN CORPUSCULAR HEMOGLOBIN 30.6 pg (27.0-33.0); MEAN CORPUSCULAR HGB CONC 32.8 g/dl (32.0-36.5); MEAN CORPUSCULAR VOLUME 93.5 fl (80.0-96.0); MONO # 0.7 10^3/uL (0.0-0.8); MONO % 10.5 % (2.0-8.0); NEUTROPHILS # 3.4 10^3/uL (1.5-8.5); NEUTROPHILS % 55.4 % (36.0-66.0); PLATELET COUNT, AUTOMATED 243 10^3/uL (150-450); RED BLOOD COUNT 4.44 10^6/uL (4.00-5.40); WHITE BLOOD COUNT 6.2 10^3/uL (4.0-10.0)
[2024-06-22 17:03] LABS: ALBUMIN 3.5 G/DL (3.2-5.2); BILIRUBIN,DIRECT 0.2 MG/DL (<0.4); BILIRUBIN,TOTAL 0.7 MG/DL (0.3-1.2); TOTAL PROTEIN 7.1 G/DL (5.7-8.2)
[2024-06-22] MEDS ORDERED: PHEN-501 PO (18:31)
[2024-06-22] MEDS ORDERED: AMOX500T2 PO (18:31)
[2024-06-22 19:03] VITALS: BP 124/88; TEMP 97.9; O2SAT 99
== END 2024-06-22 19:07 | disposition home or self-care (01) ==
LOC: M ED 14:58
DX: N20.1 Calculus of ureter (principal); N39.0 Urinary tract infection, site not specified; Z88.8 Allergy status to other drugs, medicaments and biological substances; Z79.1 Long term (current) use of non-steroidal anti-inflammatories (NSAID); Z79.2 Long term (current) use of antibiotics; Z79.899 Other long term (current) drug therapy

== ENCOUNTER → 2024-06-25 | Outpatient (CLI) | payer BC ==
[~2024-06-25] MED LIST changes: +AMOX500T2 PO; +PHEN-501 PO
== END ==
LOC: M PLAIMG 08:08
PROVIDERS: ATTEND Physician Assistant Medical
DX: M25.512 Pain in left shoulder (principal)

== ENCOUNTER → 2024-07-03 | Outpatient (CLI) | payer BC ==
[2024-07-03 13:52] LABS: APPEARANCE, URINE HAZY (CLEAR); BACTERIA, URINE AUTO 2+ (NEGATIVE); BILIRUBIN, URINE AUTO NEGATIVE (NEGATIVE); BLOOD, URINE BLOOD 3+ (NEGATIVE); COLOR, URINE YELLOW (YELLOW); GLUCOSE, URINE (UA) AUTO NEGATIVE (NEGATIVE); KETONE, URINE AUTO NEGATIVE (NEGATIVE); LEUKOCYTE ESTERASE, URINE AUTO TRACE (NEGATIVE); MUCUS, URINE SMALL (NEGATIVE); NITRITE, URINE AUTO NEGATIVE (NEGATIVE); PROTEIN, URINE AUTO NEGATIVE (NEGATIVE); RBC, URINE AUTO TNTC /HPF (0-3); SPECIFIC GRAVITY URINE AUTO 1.013 (1.002-1.035); SQUAMOUS EPITHELIAL CELL UR AU 5 /HPF (0-6); UROBILINOGEN, URINE AUTO 0.2 mg/dL (0.0-2.0); WBC, URINE AUTO 11 /HPF (0-3)
== END ==
LOC: M RAD 13:18
PROVIDERS: ATTEND Nurse Practitioner Family
DX: Z01.818 Encounter for other preprocedural examination (principal)

== ENCOUNTER 2024-07-12 09:41 | Day surgery (SDC) | payer BC ==
[~2024-07-12] VITALS: Ht 154.9 cm; Wt 62.8 kg
[~2024-07-12 09:41] MED LIST changes: +PHEN30CA21 PO; +TAMS1CAP17 PO
[2024-07-12] MEDS: LR 1,000 ML IV SCH (11:06)
[2024-07-12] MEDS ORDERED: LIDOCAINE 2% 100MG/5ML SDV (FOR ANES.) As Ordered ONE (13:04)
[2024-07-12] MEDS ORDERED: ONDANSETRON 4MG 2ML VIAL As Ordered ONE (13:04)
[2024-07-12] MEDS ORDERED: propofoL 200 MG/20 ML VIAL As Ordered ONE (13:04)
[2024-07-12] MEDS ORDERED: MIDAZOLAM INJ 2MG/2ML VIAL As Ordered ONE (13:08)
[2024-07-12] MEDS ORDERED: fentaNYL 100 MCG/2 ML INJECTION As Ordered ONE (13:08)
[2024-07-12] MEDS: ceFAZolin SOD 2 GM IV ONCE IV ONE (14:46)
[2024-07-12] MEDS ORDERED: ACETAMINOPHEN 1000MG/100ML IV BAG As Ordered ONE (14:46)
[2024-07-12] MEDS: ISOVUE-300 61% 100ML VIAL As Ordered ONE (15:00)
[2024-07-12] MEDS ORDERED: oxyCODONE 5MG TAB PO PRN (16:05)
[2024-07-12] MEDS ORDERED: LR 1,000 ML IV SCH (16:05)
[2024-07-12] MEDS ORDERED: HYDROMORPHONE HCL 0.5 MG/ 0.5 ML SYRINGE IV PRN (16:05)
[2024-07-12] MEDS ORDERED: fentaNYL 100 MCG/2 ML INJECTION IV PRN (16:05)
[2024-07-12] MEDS: ONDANSETRON 4MG 2ML VIAL IV PRN (16:10)
[2024-07-12] MEDS ORDERED: PERCOCET 5MG/325MG TAB PO PRN (16:30)
[2024-07-12] MEDS: oxyBUTYnin 5 MG TAB PO PRN (16:35)
[2024-07-12] MEDS ORDERED: OXYB5TAB14 PO (16:40)
[2024-07-12] MEDS ORDERED: OXYC1TAB23 PO (16:40)
[2024-07-12 17:00] VITALS: BP 157/96; TEMP 97.5; O2SAT 100
== END 2024-07-12 17:13 | disposition home or self-care (01) ==
LOC: M SDC 09:41
PROVIDERS: ATTEND Urology
DX: N20.0 Calculus of kidney (principal); N13.39 Other hydronephrosis; Z88.3 Allergy status to other anti-infective agents
CPT/HCPCS: 52356; 76000; 82365; C1769; C1894; C2617; J0131; J0690; J1100; J2250; J2405; J3010; Q9967

== ENCOUNTER → 2024-10-21 | Outpatient (REF) | payer BC ==
[~2024-10-21] MED LIST changes: +OXYB5TAB14 PO
[2024-10-21 16:38] LABS: Trichomonas vaginalis (AMP) NOT DETECTED (NEGATIVE)
[2024-10-21 17:01] LABS: GC DNA AMPLIFICATION NEGATIVE (NEGATIVE)
== END ==
LOC: M LAB REF 14:45
PROVIDERS: ATTEND Nurse Practitioner Adult Health
DX: Z20.2 Contact with and (suspected) exposure to infections with a predominantly sexual mode of transmission (principal)

== ENCOUNTER → 2024-12-17 | Outpatient (CLI) | payer BC | LOC: M RAD 10:51 | PROVIDERS: ATTEND Physician Assistant Medical | DX: M54.50 Low back pain, unspecified (principal); M25.552 Pain in left hip ==

== ENCOUNTER → 2025-01-14 | Outpatient (CLI) | payer BC | LOC: M RAD 12:36 | PROVIDERS: ATTEND Urology | DX: N20.0 Calculus of kidney (principal) ==